=== PATIENT | male | born 1945 | race Caucasian/White ===

== ENCOUNTER → 2017-03-17 | Outpatient (CLI) | payer MEDICARE ==
--- NOTE | 2017-03-18 07:22 | US ---
EXAMINATION TYPE: US carotid duplex BILAT DATE OF EXAM: 03/17/2017 COMPARISON: NONE CLINICAL HISTORY: Stenosis I65.29. 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 EXAM MEASUREMENTS: RIGHT: Peak Systolic Velocity (PSV) cm/sec ----- Right CCA: 55.7 ----- Right ICA: 59.9 ----- Right ECA: 35.4 ICA/CCA ratio: 1.1 RIGHT: End Diastole cm/sec ----- Right CCA: 13.9 ----- Right ICA: 19.7 ----- Right ECA: 7.5 LEFT: Peak Systolic Velocity (PSV) cm/sec ----- Left CCA: 70.2 ----- Left ICA: 106.9 ----- Left ECA: 95.5 ICA/CCA ratio: 1.5 LEFT: End Diastole cm/sec ----- Left CCA: 17.2 ----- Left ICA: 28.5 ----- Left ECA: 10.9 VERTEBRALS (direction of flow): Right Vertebral: Antegrade Left Vertebral: Antegrade Rhythm: Normal Irregular wall plaque is noted at bilateral carotid bifurcation and PSV is wnl bilaterally. IMPRESSION: 1. No hemodynamically significant stenosis identified. Criteria for Assigning % of Stenosis / Diameter reduction (Estimation based on the indirect measurements of the internal carotid artery velocities (ICA PSV). 1. Normal (no stenosis)=ICA PSV < 125 cm/s: ratio < 2.0: ICA EDV<40 cm/s. 2. Less than 50% stenosis=ICA PSV < 125 cm/s: ratio < 2.0: ICA EDV<40 cm/s. 3. 50 to 69% stenosis=ICA PSV of 125 to 230 cm/s: ration 2.0 ? 4.0: ICA EDV 40-100 cm/s. 4. Greater than 70% stenosis to near occlusion= ICA PSV > 230 cm/s: ratio > 4.0: ICA EDV > 100 cm/s. 5. Near occlusion= ICA PSV velocities may be low or undetectable: variable ratio and ICA EDV. 6. Total occlusion=unable to detect flow.
== END | disposition home or self-care (01) ==
LOC: RADUSWWP 16:36
PROVIDERS: ATTEND Family Medicine
DX: I65.29 Occlusion and stenosis of unspecified carotid artery (principal)
CPT/HCPCS: 93880

== ENCOUNTER 2017-05-23 09:25 | Inpatient (IN) | payer MEDICARE ==
[2017-05-23 09:36] LABS: Glucose,Whole Blood 156 mg/dL (75-99)
[2017-05-23] MEDS ORDERED: SODIUM CHLORIDE 0.9% 1,000 ML IV STA ×3 (09:59→10:00)
[2017-05-23] MEDS ORDERED: ACETAMINOPHEN TAB 500 MG TAB PO STA (10:00)
[2017-05-23] MEDS ORDERED: IPRATROPIUM-ALBUTEROL 3 ML NEB INHALATION STA (10:03)
--- NOTE | 2017-05-23 10:03 | ED ---
General Adult HPI - General Chief complaint: Fever Stated complaint: Fever Time Seen by Provider: 05/23/17 09:51 Source: patient, RN notes reviewed Mode of arrival: wheelchair Limitations: no limitations - History of Present Illness Initial comments: Patient is a pleasant 72-year-old male presenting to the emergency department with fever. Onset of symptoms was several days ago. Patient complains of congestion, sore throat and ear fullness. Patient has had cough with green sputum. Patient may feel short of breath during coughing episodes. Patient does have a family member recently diagnosed with pneumonia. Patient has fatigue and myalgias. - Related Data Home Medications Medication Instructions Recorded Confirmed Atorvastatin Calcium [Lipitor] 10 mg PO HS 05/23/17 05/23/17 Hydrochlorothiazide [Hydrodiuril] 25 mg PO QAM 05/23/17 05/23/17 L.acidoph,Paracasei, B.lactis 1 cap PO QAM 05/23/17 05/23/17 [Probiotic] Losartan [Cozaar] 50 mg PO BID 05/23/17 05/23/17 Tamsulosin [Flomax] 0.4 mg PO HS 05/23/17 05/23/17 metFORMIN HCL [Glucophage Xr] 1,000 mg PO HS 05/23/17 05/23/17 metFORMIN HCL [Glucophage Xr] 500 mg PO QAM 05/23/17 05/23/17 Allergies Allergy/AdvReac Type Severity Reaction Status Date / Time levofloxacin [From Levaquin] Allergy Rash/Hives Verified 05/23/17 09:39 ketamine AdvReac Confusion Verified 05/23/17 09:39 Review of Systems ROS Statement: Those systems with pertinent positive or pertinent negative responses have been documented in the HPI. ROS Other: All systems not noted in ROS Statement are negative. Constitutional: Reports: fever, chills Eyes: Denies: eye pain ENT: Reports: congestion Respiratory: Reports: cough Cardiovascular: Denies: palpitations Endocrine: Reports: fatigue Gastrointestinal: Denies: abdominal pain Genitourinary: Denies: dysuria Musculoskeletal: Denies: back pain Skin: Denies: rash Neurological: Denies: weakness Past Medical History Past Medical History: CVA/TIA, Diabetes Mellitus, Hyperlipidemia, Hypertension History of Any Multi-Drug Resistant Organisms: None Reported Past Surgical History: Back Surgery, Cholecystectomy, Joint Replacement Additional Past Surgical History / Comment(s): bilateral hip Past Psychological History: No Psychological Hx Reported Smoking Status: Never smoker Past Alcohol Use History: None Reported Past Drug Use History: None Reported General Exam Limitations: no limitations General appearance: alert, in no apparent distress Head exam: Present: atraumatic Eye exam: Present: normal appearance, PERRL ENT exam: Present: normal oropharynx, TM's normal bilaterally, other (Mild tenderness over the maxillary sinuses) Neck exam: Present: normal inspection. Absent: tenderness, meningismus Respiratory exam: Present: wheezes (Mild wheeze), rhonchi Cardiovascular Exam: Present: regular rate, normal rhythm GI/Abdominal exam: Present: soft. Absent: tenderness Extremities exam: Present: normal inspection Neurological exam: Present: alert Psychiatric exam: Present: normal affect, normal mood Skin exam: Present: normal color Course Vital Signs 05/23/17 05/23/17 05/23/17 09:34 09:53 10:08 Temperature 100.9 F H Pulse Rate 110 H Pulse Rate [ 96 92 Right] Respiratory 18 20 20 Rate Blood Pressure 82/51 Blood Pressure 109/56 115/56 [Right Arm] O2 Sat by Pulse 98 95 94 L Oximetry 05/23/17 05/23/17 05/23/17 10:15 10:30 10:45 Temperature Pulse Rate Pulse Rate [ 89 90 82 Right] Respiratory 18 16 16 Rate Blood Pressure Blood Pressure 135/61 134/60 119/58 [Right Arm] O2 Sat by Pulse 96 93 L 96 Oximetry 05/23/17 05/23/17 05/23/17 10:50 11:00 11:55 Temperature 100.2 F H 99.4 F Pulse Rate 86 88 86 Pulse Rate [ 90 Right] Respiratory 16 16 Rate Blood Pressure 125/58 Blood Pressure 118/60 [Right Arm] O2 Sat by Pulse 95 97 Oximetry - Reevaluation(s) Reevaluation #1: 05/23/17 13:13 Patient meet sepsis criteria at 1313. Blood culture and lactic acid have been ordered. Fluids were provided. Antibiotics will be ordered. Patient will be admitted secondary to hypotension and influenza with pneumonia. Case was discussed in detail with Dr. Candelaria, covering for Dr. maloney, who admits for Dr. Oakley. Medical Decision Making - Lab Data Result diagrams: 05/23/17 09:49 02/23/18 09:49 Lab Results 05/23/17 05/23/17 05/23/17 Range/Units 09:33 09:49 09:49 WBC 6.3 (3.8-10.6) k/uL RBC 4.72 (4.30-5.90) m/uL Hgb 14.1 (13.0-17.5) gm/dL Hct 39.9 (39.0-53.0) % MCV 84.6 (80.0-100.0) fL MCH 29.9 (25.0-35.0) pg MCHC 35.3 (31.0-37.0) g/dL RDW 14.2 (11.5-15.5) % Plt Count 165 (150-450) k/uL Neutrophils % 82 % Lymphocytes % 10 % Monocytes % 6 % Eosinophils % 1 % Basophils % 0 % Neutrophils # 5.1 (1.3-7.7) k/uL Lymphocytes # 0.6 L (1.0-4.8) k/uL Monocytes # 0.4 (0-1.0) k/uL Eosinophils # 0.0 (0-0.7) k/uL Basophils # 0.0 (0-0.2) k/uL Hyperchromasia Slight PT (9.0-12.0) sec INR (<1.2) APTT (22.0-30.0) sec Sodium 130 L (137-145) mmol/L Potassium 4.2 (3.5-5.1) mmol/L Chloride 94 L (98-107) mmol/L Carbon Dioxide 25 (22-30) mmol/L Anion Gap 11 mmol/L BUN 24 H (9-20) mg/dL Creatinine 1.10 (0.66-1.25) mg/dL Est GFR (MDRD) Af Amer >60 (>60 ml/min/1.73 sqM) Est GFR (MDRD) Non-Af >60 (>60 ml/min/1.73 sqM) Glucose 135 H (74-99) mg/dL POC Glucose (mg/dL) 156 H (75-99) mg/dL POC Glu Advertising Columnist ID Esteban, Kaitlyn Plasma Lactic Acid Diony (0.7-2.0) mmol/L Calcium 8.7 (8.4-10.2) mg/dL Total Bilirubin 2.2 H (0.2-1.3) mg/dL AST 43 (17-59) U/L ALT 62 (21-72) U/L Alkaline Phosphatase 76 (38-126) U/L Total Protein 6.8 (6.3-8.2) g/dL Albumin 3.8 (3.5-5.0) g/dL Influenza Type A RNA (Not Detectd) Influenza Type B (PCR) (Not Detectd) Group A Strep Rapid (Negative) 05/23/17 05/23/17 05/23/17 Range/Units 09:49 09:49 10:01 WBC (3.8-10.6) k/uL RBC (4.30-5.90) m/uL Hgb (13.0-17.5) gm/dL Hct (39.0-53.0) % MCV (80.0-100.0) fL MCH (25.0-35.0) pg MCHC (31.0-37.0) g/dL RDW (11.5-15.5) % Plt Count (150-450) k/uL Neutrophils % % Lymphocytes % % Monocytes % % Eosinophils % % Basophils % % Neutrophils # (1.3-7.7) k/uL Lymphocytes # (1.0-4.8) k/uL Monocytes # (0-1.0) k/uL Eosinophils # (0-0.7) k/uL Basophils # (0-0.2) k/uL Hyperchromasia PT 11.1 (9.0-12.0) sec INR 1.2 H (<1.2) APTT 25.0 (22.0-30.0) sec Sodium (137-145) mmol/L Potassium (3.5-5.1) mmol/L Chloride (98-107) mmol/L Carbon Dioxide (22-30) mmol/L Anion Gap mmol/L BUN (9-20) mg/dL Creatinine (0.66-1.25) mg/dL Est GFR (MDRD) Af Amer (>60 ml/min/1.73 sqM) Est GFR (MDRD) Non-Af (>60 ml/min/1.73 sqM) Glucose (74-99) mg/dL POC Glucose (mg/dL) (75-99) mg/dL POC Glu Advertising Columnist ID Plasma Lactic Acid Diony 1.0 (0.7-2.0) mmol/L Calcium (8.4-10.2) mg/dL Total Bilirubin (0.2-1.3) mg/dL AST (17-59) U/L ALT (21-72) U/L Alkaline Phosphatase (38-126) U/L Total Protein (6.3-8.2) g/dL Albumin (3.5-5.0) g/dL Influenza Type A RNA Detected H (Not Detectd) Influenza Type B (PCR) Not Detected (Not Detectd) Group A Strep Rapid (Negative) 05/23/17 Range/Units 10:01 WBC (3.8-10.6) k/uL RBC (4.30-5.90) m/uL Hgb (13.0-17.5) gm/dL Hct (39.0-53.0) % MCV (80.0-100.0) fL MCH (25.0-35.0) pg MCHC (31.0-37.0) g/dL RDW (11.5-15.5) % Plt Count (150-450) k/uL Neutrophils % % Lymphocytes % % Monocytes % % Eosinophils % % Basophils % % Neutrophils # (1.3-7.7) k/uL Lymphocytes # (1.0-4.8) k/uL Monocytes # (0-1.0) k/uL Eosinophils # (0-0.7) k/uL Basophils # (0-0.2) k/uL Hyperchromasia PT (9.0-12.0) sec INR (<1.2) APTT (22.0-30.0) sec Sodium (137-145) mmol/L Potassium (3.5-5.1) mmol/L Chloride (98-107) mmol/L Carbon Dioxide (22-30) mmol/L Anion Gap mmol/L BUN (9-20) mg/dL Creatinine (0.66-1.25) mg/dL Est GFR (MDRD) Af Amer (>60 ml/min/1.73 sqM) Est GFR (MDRD) Non-Af (>60 ml/min/1.73 sqM) Glucose (74-99) mg/dL POC Glucose (mg/dL) (75-99) mg/dL POC Glu Advertising Columnist ID Plasma Lactic Acid Diony (0.7-2.0) mmol/L Calcium (8.4-10.2) mg/dL Total Bilirubin (0.2-1.3) mg/dL AST (17-59) U/L ALT (21-72) U/L Alkaline Phosphatase (38-126) U/L Total Protein (6.3-8.2) g/dL Albumin (3.5-5.0) g/dL Influenza Type A RNA (Not Detectd) Influenza Type B (PCR) (Not Detectd) Group A Strep Rapid Negative (Negative) - Radiology Data Radiology results: image reviewed (Chest x-ray has concern for left lower lobe infiltrate.) Critical Care Time Critical Care Time: Yes Total Critical Care Time: 32 Disposition Clinical Impression: Severe sepsis, Influenza, Pneumonia Disposition: ADMITTED IP TO THIS HOSP Referrals: Eddie Oakley DO [Primary Care Provider] - 1-2 days Decision Time: 13:14
[2017-05-23 10:18] LABS: HCT 39.9 % (39.0-53.0); HGB 14.1 gm/dL (13.0-17.5); Hyperchromasia Slight; MCH 29.9 pg (25.0-35.0); MCHC 35.3 g/dL (31.0-37.0); MCV 84.6 fL (80.0-100.0); Platelet Count 165 k/uL (150-450); RBC 4.72 m/uL (4.30-5.90); RDW 14.2 % (11.5-15.5); WBC 6.3 k/uL (3.8-10.6)
[2017-05-23 10:19] LABS: Basophils % (A) 0 %; Eosinophils % (A) 1 %; Lymphocytes # (A) 0.6 k/uL (1.0-4.8); Lymphocytes % (A) 10 %; Monocytes # (A) 0.4 k/uL (0-1.0); Monocytes % (A) 6 %; Neutrophils # (A) 5.1 k/uL (1.3-7.7); Neutrophils % (A) 82 %
[2017-05-23 10:33] LABS: ALT 62 U/L (21-72); AST 43 U/L (17-59); Albumin 3.8 g/dL (3.5-5.0); Alkaline Phosphatase 76 U/L (38-126); Anion Gap 11 mmol/L; Blood Urea Nitrogen 24 mg/dL (9-20); Calcium 8.7 mg/dL (8.4-10.2); Carbon Dioxide 25 mmol/L (22-30); Chloride 94 mmol/L (98-107); Glucose 135 mg/dL (74-99); Potassium 4.2 mmol/L (3.5-5.1); Sodium 130 mmol/L (137-145); Total Bilirubin 2.2 mg/dL (0.2-1.3); Total Protein 6.8 g/dL (6.3-8.2)
[2017-05-23 10:38] LABS: INR 1.2 (<1.2); Prothrombin Time 11.1 sec (9.0-12.0)
--- NOTE | 2017-05-23 11:40 | XR ---
EXAMINATION TYPE: XR chest 2V DATE OF EXAM: 05/23/2017 COMPARISON: NONE HISTORY: Fever, cough and congestion TECHNIQUE: Frontal and lateral views of the chest are obtained. FINDINGS: Patient is rotated and the exam is expiratory, there are overlying cardiac leads. No evide nt pneumothorax or pleural effusion. Cardiac mediastinal silhouette, pulmonary vascularity and mag w ithin normal limits accounting for technique. Question some patchy retrocardiac density. IMPRESSION: Difficult to exclude left lower lobe pneumonia, correlate, follow-up suggested.
[2017-05-23] MEDS ORDERED: PNEUMONIA PROTOCOL UTILIZED 1 EACH MISC PO PRN (13:15)
[2017-05-23] MEDS ORDERED: AZITHROMYCIN 500 MG in SODIUM CHLORIDE 0.9% 250 ML IVPB STA (13:15)
[2017-05-23] MEDS ORDERED: IPRATROPIUM-ALBUTEROL 3 ML NEB INHALATION PRN (13:15)
[2017-05-23] MEDS ORDERED: cefTRIAXone IN SWFI 1,000 MG/10 ML SYRINGE IVP STA (13:15)
[2017-05-23 13:40] LABS: Appearance,Urine Clear (Clear); Bilirubin,Urine Negative (Negative); Blood,Urine Negative (Negative); Color,Urine Yellow; Glucose,Urine (UA) Negative (Negative); Ketones,Urine 1+ (Negative); Leukocyte Esterase,Urine Negative (Negative); Nitrite,Urine Negative (Negative); Protein,Urine Trace (Negative); Specific Gravity,Urine 1.014 (1.001-1.035)
[2017-05-23] MEDS: SODIUM CHLORIDE 0.9% 1,000 ML IV SCH (13:41)
[2017-05-23] MEDS: OSELTAMIVIR 75 MG CAP PO SCH ×2 (13:41→23:49)
[2017-05-23] MEDS: HYDROCHLOROTHIAZIDE 25 MG TAB PO SCH (17:39)
[2017-05-23] MEDS: LACTOBACILLUS ACIDOPH & BULGAR 1 EACH PACKET PO SCH (17:39)
[2017-05-23] MEDS: metFORMIN 500 MG TAB PO SCH (17:39)
[2017-05-23] MEDS: ACETAMINOPHEN TAB 325 MG TAB PO PRN (19:58)
[2017-05-23] MEDS: GABAPENTIN 300 MG CAP PO SCH (19:58)
--- NOTE | 2017-05-23 20:09 | HP ---
HISTORY AND PHYSICAL DATE OF ADMISSION: 05/23/2017. Chief complaint was fever. BRIEF HISTORY: Patient is 72-year-old male patient with a past medical history of hypertension, hyperlipidemia and diabetes, who presents to the ER with a complaint of fever which started several days ago. The patient claims that he has some marked chest congestion with sore throat and ear fullness. On day of admission, started coughing up yellowish- green sputum. He was very short of breath and diaphoretic and getting weaker, so decided to come to ED. He has a past medical history significant for: 1. History of CVA/TIA. 2. Diabetes mellitus. 3. Hyperlipidemia. 4. Hypertension. 5. PAST SURGICAL HISTORY: Significant for: 1. Back surgery. 2. Cholecystectomy. 3. Bilateral hip replacement surgery. SOCIAL HISTORY: Patient has no history of smoking or alcohol abuse. Lives at home with . FAMILY HISTORY: Negative for coronary artery disease or CHF or any history of cancer in the family. He is allergic to LEVAQUIN and KETAMINE. MEDICATIONS: Patient is on: 1. Lipitor 10 mg p.o. q.h.s. 2. HydroDIURIL 25 mg p.o. q.a.m. 3. Cozaar 50 mg p.o. b.i.d. 4. Flomax 0.4 mg p.o. q.h.s. 5. Glucophage 1000 mg p.o. q.h.s. and. 6. Metformin 500 mg p.o. q.a.m. REVIEW OF SYSTEM: CONSTITUTIONAL: Fever and chills. HEENT: No vision or hearing loss. RESPIRATORY: Cough and chest congestion. CARDIOVASCULAR: Palpitations. ENDOCRINE: No polyuria, polydipsia. GI: Abdominal pain. No nausea, vomiting. GENITOURINARY: No dysuria. No hematuria. MUSCULOSKELETAL: Muscle aches and pains. SKIN: No rashes. NEUROLOGIC: No dizziness, lightheadedness. No headaches. PHYSICAL EXAMINATION: Patient is awake and alert, in mild distress. VITAL SIGNS: Temperature of 100.9, pulse 110, respirations 18, blood pressure 82/51, O2 saturation 98%. HEENT: Atraumatic, normocephalic. Pupils equal and reactive to light. Extraocular movements intact. Buccal mucosa is fair to dry. NECK: Supple. No goiter or lymphadenopathy. JVD is negative. No carotid bruit heard. LUNGS: Positive congestion, diffuse wheezing and rhonchi. Heart is tachycardic regular rhythm. ABDOMEN: Soft and nontender, nondistended. Bowel sounds positive. EXTREMITIES: No edema, clubbing, cyanosis. NEUROLOGICAL: Patient is awake, alert, oriented x3. No gross motor or sensory deficit. PSYCHIATRIC: Patient has normal mood and affect. Skin is normal in color. LABS: CBC: White blood count of 6.3, hemoglobin 14.1, hematocrit 39.9 and platelet count 165. Chemical profile: Sodium 130, potassium , chloride 94, bicarb 25, BUN 24, creatinine 1.1, glucose 135. Influenza A is positive. Chest x-ray: Possible left lower lobe pneumonia. ASSESSMENT: 1. Influenza A. 2. Community-acquired pneumonia, left lower lobe. 3. Acute renal injury and dehydration. 4. Hyponatremia. 5. Hypotension secondary to dehydration. Plan is to admit the patient to telemetry, monitor his electrolytes, CBC. Start patient on IV Rocephin and Zithromax, nebulizer treatments and start patient on O2 per nasal cannula. Tamiflu was started in ED. Will resume home medications and follow the patient clinically. MMODL / IJN: [id number] /
[2017-05-23 20:50] LABS: Glucose,Whole Blood 155 mg/dL (75-99)
[2017-05-23] MEDS: TAMSULOSIN 0.4 MG CAP.ER.24H PO SCH (22:11)
[2017-05-23] MEDS: LOSARTAN 50 MG TAB PO SCH (22:11)
[2017-05-23] MEDS: ATORVASTATIN 10 MG TAB PO SCH (22:12)
[2017-05-24] MEDS: SODIUM CHLORIDE 0.9% 1,000 ML IV SCH ×3 (05:09→17:52)
--- NOTE | 2017-05-24 07:12 | XR ---
EXAMINATION TYPE: XR chest 2V DATE OF EXAM: 05/24/2017 HISTORY: pneumonia. REFERENCE: Previous study dated 05/23/2017. FINDINGS: The lungs are clear. The heart is not enlarged. Pleural spaces are clear. IMPRESSION: NO ACUTE INTRATHORACIC ABNORMALITY.
[2017-05-24] MEDS: metFORMIN 500 MG TAB PO SCH ×2 (07:29→17:52)
[2017-05-24] MEDS: LACTOBACILLUS ACIDOPH & BULGAR 1 EACH PACKET PO SCH (07:31)
[2017-05-24] MEDS: GABAPENTIN 300 MG CAP PO SCH (07:31)
[2017-05-24] MEDS: HYDROCHLOROTHIAZIDE 25 MG TAB PO SCH (07:31)
[2017-05-24] MEDS: LOSARTAN 50 MG TAB PO SCH ×2 (07:32→21:05)
[2017-05-24 07:42] LABS: Glucose,Whole Blood 147 mg/dL (75-99)
[2017-05-24] MEDS ORDERED: LORATADINE 10 MG TAB PO SCH (09:00)
[2017-05-24] MEDS: ACETAMINOPHEN TAB 325 MG TAB PO PRN (09:57)
[2017-05-24 11:21] LABS: Glucose,Whole Blood 144 mg/dL (75-99)
[2017-05-24] MEDS: AZITHROMYCIN 500 MG TAB PO SCH (12:08)
[2017-05-24] MEDS: OSELTAMIVIR 75 MG CAP PO SCH ×2 (12:08→23:37)
[2017-05-24 12:25] VITALS: BMI 32.3
[2017-05-24] MEDS ORDERED: cefTRIAXone IN SWFI 1,000 MG/10 ML SYRINGE IVP SCH (13:00)
[2017-05-24] MEDS ORDERED: GABAPENTIN 300 MG CAP PO SCH (17:00)
[2017-05-24 17:51] LABS: Glucose,Whole Blood 127 mg/dL (75-99)
[2017-05-24 21:03] LABS: Glucose,Whole Blood 138 mg/dL (75-99)
[2017-05-24] MEDS: TAMSULOSIN 0.4 MG CAP.ER.24H PO SCH (21:05)
[2017-05-24] MEDS: ATORVASTATIN 10 MG TAB PO SCH (21:05)
[2017-05-24] MEDS: LORATADINE-PSEUDOEPH 5-120 MG 1 EACH TAB.ER.12H PO SCH (21:18)
[2017-05-25 07:13] LABS: Glucose,Whole Blood 133 mg/dL (75-99)
[2017-05-25] MEDS: LACTOBACILLUS ACIDOPH & BULGAR 1 EACH PACKET PO SCH (07:19)
[2017-05-25] MEDS: metFORMIN 500 MG TAB PO SCH (07:19)
[2017-05-25] MEDS: LORATADINE-PSEUDOEPH 5-120 MG 1 EACH TAB.ER.12H PO SCH (07:20)
[2017-05-25] MEDS: LOSARTAN 50 MG TAB PO SCH (07:20)
[2017-05-25 08:00] VITALS: BP 127/70; PULSE 69; RESP 20; TEMP 97.7
[2017-05-25] MEDS ORDERED: CEFUROXIME 250 MG TAB PO SCH (08:00)
--- NOTE | 2017-05-25 11:00 | PN ---
PROGRESS NOTE DATE OF SERVICE: May 24, 2017. PRESENTING COMPLAINT: Fever, cough. INTERVAL HISTORY: This patient was seen by me yesterday on May 24, 2017. Patient admitted with what is felt to be pneumonia and influenza A by my colleague. The patient's cough and sputum production is getting better. Appetite is getting better. Patient has been up to the bathroom. REVIEW OF SYSTEMS: Done for constitutional, cardiovascular, GI, pulmonary and relevant findings as above. CURRENT MEDICATIONS: Reviewed that include: Azithromycin, ceftriaxone and Tamiflu. PHYSICAL EXAMINATION: Temperature 97.9, pulse 81, respiratory 18, blood pressure 135/79, pulse ox 95% on room air. GENERAL APPEARANCE: Sitting up, edged of the bed, awake. EYES: Pupils equal. Conjunctivae normal. HEENT external appearance of nose and ears normal. Oral cavity normal. Neck JVD not raised. Mass not palpable. Respiratory effort normal. Lungs slightly decreased breath sounds. Some right-sided wheezing. Cardiovascular 1st and 2nd sounds normal. No edema. ABDOMEN: Soft, nontender. Liver and spleen not palpable. No mass palpable. Psychiatry: Alert and oriented times three. Mood and affect is normal. INVESTIGATIONS: Investigations: Sodium 130, BUN 24, creatinine 1.10. The labs are from yesterday. ASSESSMENT: 1. Acute influenza A pneumonitis. 2. Possible left lower lobe community-acquired pneumonia. Consider gram-negative organism for which patient is on IV ceftriaxone. 3. Hyponatremia, suspect hypoosmolar from decreased salt intake. 4. Dehydration. 5. Obesity; BMI 32.2. 6. Essential hypertension. 7. Diabetes mellitus type 2 on oral hypoglycemic. 8. Hyperlipidemia. 9. Benign prostatic hypertrophy. PLAN: Care was discussed with the patient at length. We will switch over to oral antibiotics in the morning. Continue with Tamiflu. Recheck sodium tomorrow morning. If the patient continues to do well, hoping can be discharged tomorrow. MMODL / IJN: [id number] /
[2017-05-25 11:09] LABS: Anion Gap 8 mmol/L; Blood Urea Nitrogen 12 mg/dL (9-20); Calcium 8.6 mg/dL (8.4-10.2); Carbon Dioxide 30 mmol/L (22-30); Chloride 92 mmol/L (98-107); Glucose 171 mg/dL (74-99); Potassium 4.1 mmol/L (3.5-5.1); Sodium 130 mmol/L (137-145)
[2017-05-25] MEDS: OSELTAMIVIR 75 MG CAP PO SCH (12:20)
[2017-05-25] MEDS: AZITHROMYCIN 500 MG TAB PO SCH (12:20)
--- NOTE | 2017-05-25 22:42 | DS ---
DISCHARGE SUMMARY DATE OF ADMISSION: 05/23/2017. DATE OF DISCHARGE: 05/25/2017. FINAL DIAGNOSES: 1. Possible left lower lobe pneumonia, community-acquired pneumonia, suspect gram- negative organism, present on admission. 2. Acute influenza A with pneumonitis, present on admission. 3. Hyponatremia, suspect hypoosmolar from increased fluid intake. 4. Dehydration. 5. Obesity; BMI 32.2. 6. Essential hypertension. 7. Diabetes mellitus type 2, on oral hypoglycemic. 8. Hyperlipidemia. 9. Benign prostatic hypertrophy. HOSPITAL COURSE: This patient presented to the hospital with cough, shortness of breath, some fever. Found to have pneumonia, was put on IV ceftriaxone and Tamiflu. Doing much better by the time of discharge. Tolerating a diet. The patient's sodium does run low. Patient does drink an excessive amount of fluids, was told to cut back on the same. Doing much better at time of discharge. On examination, very few rigors or crackles. Otherwise up and about, doing well. Care was discussed in detail with the patient. DISCHARGE MEDICATIONS: 1. Lipitor 10 mg at bedtime. 2. Hydrochlorothiazide 25 mg p.o. daily. 3. Probiotic 1 capsule p.o. daily. 4. Cozaar 50 mg p.o. b.i.d. 5. Flomax 0.4 mg at bedtime. 6. Glucophage XR 1000 mg at bedtime and 5 mg in the morning. 7. Ceftin 500 mg p.o. b.i.d. 6 tablets. 8. Claritin-D every 12, 6 tablets. 9. Tamiflu 75 mg b.i.d., 10 capsules. ADDITIONAL INSTRUCTIONS: 1. Patient discussed in detail to cut back on fluids. 2. Labs, BMP in 1 week. 3[address] Followup with [address] Oakley. Discussion and discharge planning more than 35 minutes. MMODL / IJN: [id number] /
== END 2017-05-25 14:11 | disposition home or self-care (01) | DRG 178 ==
LOC: EC 09:25 → 5MS5E 13:15
PROVIDERS: ADMIT Hospitalist; ATTEND Hospitalist
DX: J15.6 Pneumonia due to other Gram-negative bacteria (principal); E87.1 Hypo-osmolality and hyponatremia; N17.9 Acute kidney failure, unspecified; E86.0 Dehydration; E11.9 Type 2 diabetes mellitus without complications; E66.9 Obesity, unspecified; E78.5 Hyperlipidemia, unspecified; I10 Essential (primary) hypertension; J10.08 Influenza due to other identified influenza virus with other specified pneumonia; J12.89 Other viral pneumonia; N40.0 Benign prostatic hyperplasia without lower urinary tract symptoms; Z86.73 Personal history of transient ischemic attack (TIA), and cerebral infarction without residual deficits; Z96.643 Presence of artificial hip joint, bilateral; Z88.1 Allergy status to other antibiotic agents; Z88.8 Allergy status to other drugs, medicaments and biological substances; Z79.899 Other long term (current) drug therapy
CPT/HCPCS: 36415; 71046; 80048; 80053; 81003; 83605; 85025; 85610; 85730; 87040; 87070; 87077; 87081; 87086; 87186; 87205; 87430; 87502; 94640; 96361; 96365; 96375; 99285

== ENCOUNTER 2017-07-06 19:13 | Emergency (ER) | payer MEDICARE ==
--- NOTE | 2017-07-06 19:51 | ED ---
General Adult HPI - General Chief complaint: Chest Pain Stated complaint: hypertension Time Seen by Provider: 07/06/17 19:42 Source: patient, RN notes reviewed, old records reviewed Mode of arrival: wheelchair Limitations: no limitations - History of Present Illness Initial comments: 72-year-old male presenting for evaluation of elevated blood pressure. Patient states he has been monitoring his blood pressure because several weeks ago when he had the flu and pneumonia his blood pressure had been running low. Throughout the day today he has noticed significantly elevated blood pressures between 180 systolic and 210 systolic. He denies missing any doses of his antihypertensive medications. States that he takes losartan 50 mg twice daily as well as had clear thiazide in the morning. Denies any chest pain. States he has some mild chest heaviness, no difficulty breathing. No abdominal pain. 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 No new focal weakness or numbness. No headache. No cough, no fever or chills. - Related Data Home Medications Medication Instructions Recorded Confirmed Atorvastatin Calcium [Lipitor] 10 mg PO HS 05/23/17 05/23/17 Hydrochlorothiazide [Hydrodiuril] 25 mg PO QAM 05/23/17 05/23/17 L.acidoph,Paracasei, B.lactis 1 cap PO QAM 05/23/17 05/23/17 [Probiotic] Losartan [Cozaar] 50 mg PO BID 05/23/17 05/23/17 Tamsulosin [Flomax] 0.4 mg PO HS 05/23/17 05/23/17 metFORMIN HCL [Glucophage Xr] 1,000 mg PO HS 05/23/17 05/23/17 metFORMIN HCL [Glucophage Xr] 500 mg PO QAM 05/23/17 05/23/17 Previous Rx's Medication Instructions Recorded Cefuroxime [Ceftin] 500 mg PO BID@0800,2000 #6 tab 05/25/17 Loratadine-Pseudoeph 5-120 mg 1 each PO Q12HR #6 tab.er.12h 05/25/17 [Claritin-D 12 Hour] Oseltamivir [Tamiflu] 75 mg PO BID@0000,1200 #10 cap 05/25/17 Allergies Allergy/AdvReac Type Severity Reaction Status Date / Time levofloxacin [From Levaquin] Allergy Rash/Hives Verified 07/06/17 19:26 ketamine AdvReac Confusion Verified 07/06/17 19:26 Review of Systems ROS Statement: Those systems with pertinent positive or pertinent negative responses have been documented in the HPI. ROS Other: All systems not noted in ROS Statement are negative. 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 History of Any Multi-Drug Resistant Organisms: None Reported Past Surgical History: Back Surgery, Cholecystectomy, Joint Replacement Additional Past Surgical History / Comment(s): bilateral total hip arthroplasties, low back surgery-has titanium cage, bilateral cataract removals with lens implants, colonoscopies with benign polypectomy. Past Anesthesia/Blood Transfusion Reactions: No Reported Reaction Past Psychological History: No Psychological Hx Reported Smoking Status: Never smoker Past Alcohol Use History: None Reported Past Drug Use History: None Reported - Past Family History Father Family Medical History: CVA/TIA Additional Family Medical History / Comment(s): Father from a CVA at the age of 60 yrs. Mother Additional Family Medical History / Comment(s): Mother at the age of 45yrs thought to be d/t cerebral hemorrhage. General Exam Limitations: no limitations General appearance: alert, in no apparent distress Head exam: Present: atraumatic, normocephalic Eye exam: Present: normal appearance, PERRL, EOMI ENT exam: Present: normal exam Neck exam: Present: normal inspection. Absent: tenderness, meningismus Respiratory exam: Present: normal lung sounds bilaterally. Absent: respiratory distress, wheezes Cardiovascular Exam: Present: regular rate, normal rhythm GI/Abdominal exam: Present: soft. Absent: distended, tenderness, guarding, rebound Extremities exam: Present: normal inspection, normal capillary refill. Absent: pedal edema Neurological exam: Present: alert, oriented X3, CN II-XII intact. Absent: motor sensory deficit Psychiatric exam: Present: normal affect, normal mood Skin exam: Present: warm, dry, intact. Absent: cyanosis, diaphoretic Course Vital Signs 07/06/17 07/06/17 07/06/17 19:23 20:14 20:39 Temperature 97.3 F L Pulse Rate 73 70 75 Respiratory 18 16 16 Rate Blood Pressure 219/93 206/91 187/85 O2 Sat by Pulse 99 98 98 Oximetry 07/06/17 07/06/17 07/07/17 21:48 23:36 00:13 Temperature 98.7 F Pulse Rate 79 83 91 Respiratory 16 18 16 Rate Blood Pressure 177/77 188/86 160/79 O2 Sat by Pulse 96 97 98 Oximetry - Reevaluation(s) Reevaluation #1: 07/06/17 21:04 Patient's care is signed out to Dr. Regan shift change awaiting down trending blood pressure. Medical Decision Making - Medical Decision Making Initial blood pressure is elevated, 210/100, this is symmetric in both upper extremities. Normal pulse exam. - Lab Data Result diagrams: 07/06/17 19:54 07/06/17 19:54 Lab Results 07/06/17 07/06/17 07/06/17 Range/Units 19:54 19:54 19:54 WBC 4.5 (3.8-10.6) k/uL RBC 4.72 (4.30-5.90) m/uL Hgb 13.9 (13.0-17.5) gm/dL Hct 39.1 (39.0-53.0) % MCV 82.8 (80.0-100.0) fL MCH 29.4 (25.0-35.0) pg MCHC 35.5 (31.0-37.0) g/dL RDW 13.7 (11.5-15.5) % Plt Count 173 (150-450) k/uL Neutrophils % 61 % Lymphocytes % 27 % Monocytes % 7 % Eosinophils % 4 % Basophils % 1 % Neutrophils # 2.7 (1.3-7.7) k/uL Lymphocytes # 1.2 (1.0-4.8) k/uL Monocytes # 0.3 (0-1.0) k/uL Eosinophils # 0.2 (0-0.7) k/uL Basophils # 0.0 (0-0.2) k/uL PT (9.0-12.0) sec INR (<1.2) APTT (22.0-30.0) sec Sodium 134 L (137-145) mmol/L Potassium 4.2 (3.5-5.1) mmol/L Chloride 99 (98-107) mmol/L Carbon Dioxide 25 (22-30) mmol/L Anion Gap 10 mmol/L BUN 22 H (9-20) mg/dL Creatinine 0.80 (0.66-1.25) mg/dL Est GFR (CKD-EPI)AfAm >90 (>60 ml/min/1.73 sqM) Est GFR (CKD-EPI)NonAf >90 (>60 ml/min/1.73 sqM) Glucose 186 H (74-99) mg/dL Calcium 9.4 (8.4-10.2) mg/dL Magnesium 1.9 (1.6-2.3) mg/dL Total Bilirubin 1.0 (0.2-1.3) mg/dL AST 25 (17-59) U/L ALT 36 (21-72) U/L Alkaline Phosphatase 71 (38-126) U/L Total Creatine Kinase 172 H (55-170) U/L CK-MB (CK-2) 4.1 H* (0.0-2.4) ng/mL CK-MB (CK-2) Rel Index 2.4 Troponin I <0.012 (0.000-0.034) ng/mL NT-Pro-B Natriuret Pep pg/mL Total Protein 7.0 (6.3-8.2) g/dL Albumin 4.0 (3.5-5.0) g/dL 07/06/17 07/06/17 Range/Units 19:54 19:54 WBC (3.8-10.6) k/uL RBC (4.30-5.90) m/uL Hgb (13.0-17.5) gm/dL Hct (39.0-53.0) % MCV (80.0-100.0) fL MCH (25.0-35.0) pg MCHC (31.0-37.0) g/dL RDW (11.5-15.5) % Plt Count (150-450) k/uL Neutrophils % % Lymphocytes % % Monocytes % % Eosinophils % % Basophils % % Neutrophils # (1.3-7.7) k/uL Lymphocytes # (1.0-4.8) k/uL Monocytes # (0-1.0) k/uL Eosinophils # (0-0.7) k/uL Basophils # (0-0.2) k/uL PT 10.3 (9.0-12.0) sec INR 1.1 (<1.2) APTT 22.6 (22.0-30.0) sec Sodium (137-145) mmol/L Potassium (3.5-5.1) mmol/L Chloride (98-107) mmol/L Carbon Dioxide (22-30) mmol/L Anion Gap mmol/L BUN (9-20) mg/dL Creatinine (0.66-1.25) mg/dL Est GFR (CKD-EPI)AfAm (>60 ml/min/1.73 sqM) Est GFR (CKD-EPI)NonAf (>60 ml/min/1.73 sqM) Glucose (74-99) mg/dL Calcium (8.4-10.2) mg/dL Magnesium (1.6-2.3) mg/dL Total Bilirubin (0.2-1.3) mg/dL AST (17-59) U/L ALT (21-72) U/L Alkaline Phosphatase (38-126) U/L Total Creatine Kinase (55-170) U/L CK-MB (CK-2) (0.0-2.4) ng/mL CK-MB (CK-2) Rel Index Troponin I (0.000-0.034) ng/mL NT-Pro-B Natriuret Pep 174 pg/mL Total Protein (6.3-8.2) g/dL Albumin (3.5-5.0) g/dL Disposition Clinical Impression: Hypertension Disposition: HOME SELF-CARE Condition: Fair Instructions: Hypertension (ED) Referrals: Eddie Oakley DO [Primary Care Provider] - 1-2 days
[2017-07-06] MEDS ORDERED: LOSARTAN-HCTZ 50-12.5 MG 1 EACH TAB PO ONE (20:00)
[2017-07-06 20:05] LABS: Basophils % (A) 1 %; Eosinophils # (A) 0.2 k/uL (0-0.7); Eosinophils % (A) 4 %; HCT 39.1 % (39.0-53.0); HGB 13.9 gm/dL (13.0-17.5); Lymphocytes # (A) 1.2 k/uL (1.0-4.8); Lymphocytes % (A) 27 %; MCH 29.4 pg (25.0-35.0); MCHC 35.5 g/dL (31.0-37.0); MCV 82.8 fL (80.0-100.0); Mean Platelet Volume 7.3; Monocytes # (A) 0.3 k/uL (0-1.0); Monocytes % (A) 7 %; Neutrophils # (A) 2.7 k/uL (1.3-7.7); Neutrophils % (A) 61 %; Platelet Count 173 k/uL (150-450); RBC 4.72 m/uL (4.30-5.90); RDW 13.7 % (11.5-15.5); WBC 4.5 k/uL (3.8-10.6)
[2017-07-06 20:21] LABS: ALT 36 U/L (21-72); AST 25 U/L (17-59); Alkaline Phosphatase 71 U/L (38-126); Anion Gap 10 mmol/L; Blood Urea Nitrogen 22 mg/dL (9-20); Calcium 9.4 mg/dL (8.4-10.2); Carbon Dioxide 25 mmol/L (22-30); Chloride 99 mmol/L (98-107); Glucose 186 mg/dL (74-99); INR 1.1 (<1.2); Magnesium 1.9 mg/dL (1.6-2.3); Partial Thromboplastin Time 22.6 sec (22.0-30.0); Potassium 4.2 mmol/L (3.5-5.1); Prothrombin Time 10.3 sec (9.0-12.0); Sodium 134 mmol/L (137-145)
--- NOTE | 2017-07-06 20:21 | XR ---
EXAMINATION TYPE: XR chest 2V DATE OF EXAM: 07/06/2017 COMPARISON: 05/24/2017 INDICATION: Chest pain shortness of breath chest heaviness TECHNIQUE: Frontal and lateral views of the chest are obtained. FINDINGS: The heart size is normal. The pulmonary vasculature is normal. The lungs are clear. IMPRESSION: 1. No acute pulmonary process.
[2017-07-06 20:27] LABS: Creatine Kinase 172 U/L (55-170)
[2017-07-06] MEDS ORDERED: SODIUM CHLORIDE 0.9% 500 ML IV ONE (20:27)
[2017-07-06 20:41] LABS: Troponin I <0.012 ng/mL (0.000-0.034)
[2017-07-06 20:47] LABS: Creatine Kinase MB 4.1 ng/mL (0.0-2.4)
[2017-07-06] MEDS ORDERED: hydrALAZINE HCL 20 MG/ML 1 ML VIAL IVP STA (21:40)
--- NOTE | 2017-07-06 22:13 | CT ---
EXAMINATION TYPE: CT brain wo con DATE OF EXAM: 07/06/2017 COMPARISON: NONE INDICATION: History of stroke. Hypertension today. DLP: 1092.2 mGycm, Automated exposure control for dose reduction was used. CONTRAST: None CT of the brain is performed utilizing 3 mm thick sections through the posterior fossa and 3 mm thick sections through the remaining calvarium. Study is performed within 24 hours of arrival to the hosp ital. No abnormal hyperdensity is present to suggest an acute intracranial hemorrhage. No mass lesion is evident. No acute infarcts are evident. Subcortical infarct which may be old is in the left frontal parietal r egion. No mass effect or effacement of the adjacent sulci is evident. Some ex vacuo effect appears to be a left lateral ventricle. Ventricles and sulci are appropriate for the patient age. Paranasal sinuses and mastoid air cells within the [id number] are clear. IMPRESSIONS: 1. Subcortical infarct left frontal parietal region is likely old. No comparison images are availab le for confirmation. Correlate with the clinical symptoms.
[2017-07-06] MEDS ORDERED: amLODIPine 5 MG TAB PO STA (22:27)
[2017-07-06] MEDS ORDERED: cloNIDine HCL 0.1 MG TAB PO STA (23:52)
[2017-07-07 00:15] VITALS: BP 160/79; PULSE 91; RESP 16; TEMP 98.7
[2017-07-07] MEDS ORDERED: LOSARTAN-HCTZ 50-12.5 MG 1 EACH TAB PO SCH (09:00)
--- NOTE | 2017-07-09 05:22 | CDI ---
Documentation Clarification OP Dear Jimi Burger Please do addendum to ED report for missing Clinical impression & disposition. Thank you, Alka Latham Cryptologic Linguist If you have any questions, please contact Material Engineer at [phone] [facility]
== END 2017-07-07 00:15 | disposition home or self-care (01) ==
LOC: EC 19:13
DX: I10 Essential (primary) hypertension (principal); R07.89 Other chest pain; E11.9 Type 2 diabetes mellitus without complications; E78.5 Hyperlipidemia, unspecified; N40.0 Benign prostatic hyperplasia without lower urinary tract symptoms; Z86.73 Personal history of transient ischemic attack (TIA), and cerebral infarction without residual deficits; Z79.84 Long term (current) use of oral hypoglycemic drugs; Z79.899 Other long term (current) drug therapy; Z88.1 Allergy status to other antibiotic agents; Z88.4 Allergy status to anesthetic agent
CPT/HCPCS: 99285; 96374; 96361; 36415; 93005; 83880; 80053; 82550; 82553; 83735; 84484; 85025; 85610; 85730; 71046; 70450; J0360

== ENCOUNTER 2017-10-29 22:08 | Emergency (ER) | payer MEDICARE ==
[2017-10-29 22:13] VITALS: TEMP 98.3
[2017-10-29] MEDS ORDERED: MORPHINE SULFATE 4 MG/ML SYRINGE IV STA (22:17)
[2017-10-29] MEDS ORDERED: SODIUM CHLORIDE 0.9% 1,000 ML IV STA (22:17)
[2017-10-29 22:43] LABS: Basophils % (A) 0 %; Eosinophils # (A) 0.3 k/uL (0-0.7); Eosinophils % (A) 5 %; HCT 41.7 % (39.0-53.0); HGB 15.1 gm/dL (13.0-17.5); Hyperchromasia Slight; Lymphocytes # (A) 1.5 k/uL (1.0-4.8); Lymphocytes % (A) 25 %; MCH 30.5 pg (25.0-35.0); MCHC 36.2 g/dL (31.0-37.0); MCV 84.2 fL (80.0-100.0); Mean Platelet Volume 6.6; Monocytes # (A) 0.3 k/uL (0-1.0); Monocytes % (A) 5 %; Neutrophils # (A) 3.9 k/uL (1.3-7.7); Neutrophils % (A) 64 %; Platelet Count 172 k/uL (150-450); RBC 4.95 m/uL (4.30-5.90); WBC 6.1 k/uL (3.8-10.6)
--- NOTE | 2017-10-29 22:47 | ED ---
General Adult HPI - General Chief complaint: Shortness of Breath Stated complaint: THIERNO Time Seen by Provider: 10/29/17 22:14 Source: patient, family, RN notes reviewed, old records reviewed Mode of arrival: wheelchair Limitations: no limitations - History of Present Illness Initial comments: This is a 72-year-old male the ER for evaluation. Patient coming in for evasive severe chest pain anterior chest pain epigastric chest pain. Patient has history of high blood pressure, surgical history includes cholecystectomy. Patient states symptoms 2 days, no improving symptoms, patient did take Tums with no help. No recent travel history no sick contacts no trauma. No fevers or cough congestion - Related Data Home Medications Medication Instructions Recorded Confirmed Atorvastatin Calcium [Lipitor] 10 mg PO HS 05/23/17 10/29/17 Hydrochlorothiazide [Hydrodiuril] 25 mg PO DAILY 05/23/17 10/29/17 Losartan [Cozaar] 50 mg PO BID 05/23/17 10/29/17 Tamsulosin [Flomax] 0.4 mg PO HS 05/23/17 10/29/17 metFORMIN HCL [Glucophage Xr] 500 mg PO BID 05/23/17 10/29/17 Gabapentin 600 mg PO DAILY 10/29/17 10/29/17 Pantoprazole Sodium [Protonix] 40 mg PO DAILY 10/29/17 10/29/17 amLODIPine [Norvasc] 5 mg PO DAILY 10/29/17 10/29/17 Allergies Allergy/AdvReac Type Severity Reaction Status Date / Time levofloxacin [From Levaquin] Allergy Rash/Hives Verified 10/29/17 22:47 ketamine AdvReac Confusion Verified 10/29/17 22:47 Review of Systems ROS Statement: Those systems with pertinent positive or pertinent negative responses have been documented in the HPI. ROS Other: All systems not noted in ROS Statement are negative. 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 History of Any Multi-Drug Resistant Organisms: None Reported Past Surgical History: Back Surgery, Cholecystectomy, Joint Replacement Additional Past Surgical History / Comment(s): bilateral total hip arthroplasties, low back surgery-has titanium cage, bilateral cataract removals with lens implants, colonoscopies with benign polypectomy. Past Anesthesia/Blood Transfusion Reactions: No Reported Reaction Past Psychological History: No Psychological Hx Reported Smoking Status: Never smoker Past Alcohol Use History: None Reported Past Drug Use History: None Reported - Past Family History Father Family Medical History: CVA/TIA Additional Family Medical History / Comment(s): Father from a CVA at the age of 60 yrs. Mother Additional Family Medical History / Comment(s): Mother at the age of 45yrs thought to be d/t cerebral hemorrhage. General Exam Limitations: no limitations General appearance: alert, in no apparent distress, anxious Head exam: Present: atraumatic, normocephalic, normal inspection Eye exam: Present: normal appearance, PERRL, EOMI. Absent: scleral icterus, conjunctival injection, periorbital swelling ENT exam: Present: normal exam, mucous membranes moist Neck exam: Present: normal inspection. Absent: tenderness, meningismus, lymphadenopathy Respiratory exam: Present: normal lung sounds bilaterally. Absent: respiratory distress, wheezes, rales, rhonchi, stridor Cardiovascular Exam: Present: regular rate, normal rhythm, normal heart sounds. Absent: systolic murmur, diastolic murmur, rubs, gallop, clicks GI/Abdominal exam: Present: soft, normal bowel sounds. Absent: distended, tenderness, guarding, rebound, rigid Extremities exam: Present: normal inspection, full ROM, normal capillary refill. Absent: tenderness, pedal edema, joint swelling, calf tenderness Back exam: Present: normal inspection Neurological exam: Present: alert, oriented X3, CN II-XII intact Psychiatric exam: Present: normal affect, normal mood Skin exam: Present: warm, dry, intact, normal color. Absent: rash Course Vital Signs 10/29/17 22:10 Temperature 98.3 F Pulse Rate 73 Respiratory 24 Rate Blood Pressure 160/80 O2 Sat by Pulse 100 Oximetry EKG Findings - EKG Comments: EKG Findings:: EKG shows sinus rhythm rate of 80, ID 24, QRS 08, QTc 433 Medical Decision Making - Lab Data Result diagrams: 10/29/17 22:25 10/29/17 22:25 Lab Results 10/29/17 10/29/17 10/29/17 Range/Units 22:25 22:25 22:25 WBC 6.1 (3.8-10.6) k/uL RBC 4.95 (4.30-5.90) m/uL Hgb 15.1 (13.0-17.5) gm/dL Hct 41.7 (39.0-53.0) % MCV 84.2 (80.0-100.0) fL MCH 30.5 (25.0-35.0) pg MCHC 36.2 (31.0-37.0) g/dL RDW 14.0 (11.5-15.5) % Plt Count 172 (150-450) k/uL Neutrophils % 64 % Lymphocytes % 25 % Monocytes % 5 % Eosinophils % 5 % Basophils % 0 % Neutrophils # 3.9 (1.3-7.7) k/uL Lymphocytes # 1.5 (1.0-4.8) k/uL Monocytes # 0.3 (0-1.0) k/uL Eosinophils # 0.3 (0-0.7) k/uL Basophils # 0.0 (0-0.2) k/uL Hyperchromasia Slight PT (9.0-12.0) sec INR (<1.2) APTT (22.0-30.0) sec Sodium 130 L (137-145) mmol/L Potassium 4.2 (3.5-5.1) mmol/L Chloride 95 L (98-107) mmol/L Carbon Dioxide 22 (22-30) mmol/L Anion Gap 13 mmol/L BUN 20 (9-20) mg/dL Creatinine 0.81 (0.66-1.25) mg/dL Est GFR (CKD-EPI)AfAm >90 (>60 ml/min/1.73 sqM) Est GFR (CKD-EPI)NonAf 89 (>60 ml/min/1.73 sqM) Glucose 253 H (74-99) mg/dL Calcium 9.9 (8.4-10.2) mg/dL Magnesium 1.6 (1.6-2.3) mg/dL Total Bilirubin 1.9 H (0.2-1.3) mg/dL AST 28 (17-59) U/L ALT 47 (21-72) U/L Alkaline Phosphatase 75 (38-126) U/L Total Creatine Kinase 271 H (55-170) U/L CK-MB (CK-2) 7.0 H* (0.0-2.4) ng/mL CK-MB (CK-2) Rel Index 2.6 Troponin I <0.012 (0.000-0.034) ng/mL Total Protein 7.4 (6.3-8.2) g/dL Albumin 4.6 (3.5-5.0) g/dL 10/29/17 Range/Units 22:25 WBC (3.8-10.6) k/uL RBC (4.30-5.90) m/uL Hgb (13.0-17.5) gm/dL Hct (39.0-53.0) % MCV (80.0-100.0) fL MCH (25.0-35.0) pg MCHC (31.0-37.0) g/dL RDW (11.5-15.5) % Plt Count (150-450) k/uL Neutrophils % % Lymphocytes % % Monocytes % % Eosinophils % % Basophils % % Neutrophils # (1.3-7.7) k/uL Lymphocytes # (1.0-4.8) k/uL Monocytes # (0-1.0) k/uL Eosinophils # (0-0.7) k/uL Basophils # (0-0.2) k/uL Hyperchromasia PT 10.1 (9.0-12.0) sec INR 1.0 (<1.2) APTT 23.3 (22.0-30.0) sec Sodium (137-145) mmol/L Potassium (3.5-5.1) mmol/L Chloride (98-107) mmol/L Carbon Dioxide (22-30) mmol/L Anion Gap mmol/L BUN (9-20) mg/dL Creatinine (0.66-1.25) mg/dL Est GFR (CKD-EPI)AfAm (>60 ml/min/1.73 sqM) Est GFR (CKD-EPI)NonAf (>60 ml/min/1.73 sqM) Glucose (74-99) mg/dL Calcium (8.4-10.2) mg/dL Magnesium (1.6-2.3) mg/dL Total Bilirubin (0.2-1.3) mg/dL AST (17-59) U/L ALT (21-72) U/L Alkaline Phosphatase (38-126) U/L Total Creatine Kinase (55-170) U/L CK-MB (CK-2) (0.0-2.4) ng/mL CK-MB (CK-2) Rel Index Troponin I (0.000-0.034) ng/mL Total Protein (6.3-8.2) g/dL Albumin (3.5-5.0) g/dL Disposition Clinical Impression: GERD (gastroesophageal reflux disease) Disposition: HOME SELF-CARE Condition: Good Instructions: Gastroesophageal Reflux Disease (ED), Peptic Ulcer (ED), Gastritis (ED) Is patient prescribed a controlled substance at d/c from ED?: No Referrals: Eddie Oakley DO [Primary Care Provider] - 1-2 days
[2017-10-29 22:49] LABS: Partial Thromboplastin Time 23.3 sec (22.0-30.0); Prothrombin Time 10.1 sec (9.0-12.0)
[2017-10-29 22:50] LABS: ALT 47 U/L (21-72); AST 28 U/L (17-59); Albumin 4.6 g/dL (3.5-5.0); Alkaline Phosphatase 75 U/L (38-126); Anion Gap 13 mmol/L; Blood Urea Nitrogen 20 mg/dL (9-20); Calcium 9.9 mg/dL (8.4-10.2); Carbon Dioxide 22 mmol/L (22-30); Chloride 95 mmol/L (98-107); Glucose 253 mg/dL (74-99); Magnesium 1.6 mg/dL (1.6-2.3); Potassium 4.2 mmol/L (3.5-5.1); Sodium 130 mmol/L (137-145); Total Bilirubin 1.9 mg/dL (0.2-1.3); Total Protein 7.4 g/dL (6.3-8.2)
[2017-10-29] MEDS ORDERED: ONDANSETRON 4 MG/2 ML VIAL IVP STA (22:50)
[2017-10-29 23:02] LABS: Creatine Kinase 271 U/L (55-170)
[2017-10-29 23:15] LABS: Troponin I <0.012 ng/mL (0.000-0.034)
--- NOTE | 2017-10-29 23:35 | CT ---
EXAMINATION TYPE: CT angio chest DATE OF EXAM: 10/29/2017 11:18 PM COMPARISON: None HISTORY: upper abd pain CT DLP: 512.30 mGycm Automated exposure control for dose reduction was used. CONTRAST: CTA scan of the thorax is performed with IV Contrast, patient injected with 100 mL of Isovue 370, pul monary embolism protocol. There are 3-D post processed images.. FINDINGS: The lungs are clear of consolidation. There is no pleural effusion. There is no pericardial effusion. There are a few mediastinal and bronchial lymph nodes that measure up to 1 cm. Thoracic aorta shows no sign of aneurysm or dissection. Ascending aorta measures 3.8 cm. There are no filling defects in the pulmonary arteries. IMPRESSION: NO EVIDENCE OF PULMONARY EMBOLISM. NONSPECIFIC MEDIASTINAL AND BRONCHIAL LYMPH NODES.
--- NOTE | 2017-10-29 23:42 | CT ---
EXAMINATION TYPE: CT abdomen pelvis w con DATE OF EXAM: 10/29/2017 COMPARISON: HISTORY: pain CT DLP: 1684.40 mGycm Automated exposure control for dose reduction was used. TECHNIQUE: Helical acquisition of images was performed from the lung bases through the pelvis. CONTRAST: Performed without Oral Contrast and with IV Contrast, patient injected with 100 mL of Isovue 370. FINDINGS: Lung bases are clear of consolidation. There is no pleural effusion. There is no pericardial effusion . There is irregular 10 mm linear infiltrate in the medial right lower lobe. This could relate to sca rring. Liver spleen appear normal. Bile ducts are not dilated. There are clips from cholecystectomy. There i s a 2 cm oval-shaped cyst or lymph node adjacent to posterior body of the pancreas. There is no adrenal mass. There are multiple renal bilateral cortical cysts. These measure up to 4.5 cm. There is no hydronephrosis. There is no retroperitoneal adenopathy. There is no ascites. Bladder distends smoothly. There is metal artifact from hip prosthesis. There is no sign of free air. Appendi x appears normal. There is small ventral hernia that contains fat. This measures 2 x 1 cm. There is n o intestinal wall thickening. There are no dilated loops. There is metal artifact from posterior fusi on surgery from L3 to L5. There is no compression fracture. IMPRESSION: Renal cortical cysts. Small lymph node or cyst at the posterior aspect of the body of the pancreas. No sign of acute abdomen and pelvis.
[2017-10-29] MEDS ORDERED: MAG HYDROX/AL HYDROX/SIMETH 30 ML, HYOSCYAMINE ELIXIR 10 ML, CIMETIDINE HCL 300 MG PO STA ×3 (23:48)
[2017-10-29 23:57] VITALS: BP 138/73; PULSE 77; RESP 16
== END 2017-10-30 00:02 | disposition home or self-care (01) ==
LOC: EC 22:08
DX: K21.9 Gastro-esophageal reflux disease without esophagitis (principal); E78.5 Hyperlipidemia, unspecified; I10 Essential (primary) hypertension; E11.9 Type 2 diabetes mellitus without complications; N40.0 Benign prostatic hyperplasia without lower urinary tract symptoms; Z79.84 Long term (current) use of oral hypoglycemic drugs; Z79.899 Other long term (current) drug therapy; Z88.1 Allergy status to other antibiotic agents; Z88.4 Allergy status to anesthetic agent; Z86.69 Personal history of other diseases of the nervous system and sense organs; Z90.49 Acquired absence of other specified parts of digestive tract
CPT/HCPCS: 36415; 93005; 80053; 82550; 82553; 83735; 84484; 85025; 85610; 85730; 71275; 74177; 99285; 96374; 96375; 96361; J2270; J2405; Q9967

== ENCOUNTER 2018-06-01 08:54 | Day surgery (SDC) | payer MEDICARE ==
[2018-05-28 10:10] VITALS: BMI 33.7
[~2018-06-01 08:54] MED LIST: LACTATED RINGERS 1,000 ML IV SCH; LIDOCAINE 1% 20 ML VIAL (10MG/ML) FOR IV START INTRADERMA PRN
[2018-06-01 09:09] VITALS: TEMP 98
[2018-06-01] MEDS ORDERED: LACTATED RINGERS 1,000 ML IV ONE (09:11)
[2018-06-01] MEDS ORDERED: LIDOCAINE 1% 20 ML VIAL (10MG/ML) FOR IV START INTRADERMA ONE (09:11)
[2018-06-01 09:19] LABS: Glucose,Whole Blood 186 mg/dL (75-99)
[2018-06-01] MEDS ORDERED: PROPOFOL 10 MG/ML 20 ML VIAL IV ONE (09:55)
--- NOTE | 2018-06-01 10:32 | P.PCN ---
Date of Procedure: 06/01/18 Procedure(s) Performed: Procedure: Total colonoscopy. Preoperative diagnosis: Screening for neoplasia. Postoperative diagnosis: Less than ideal preparation, otherwise, exam within normal limits. Preparation: HalfLytely prep. Sedation: Was provided by anesthesia. Brief clinical history: The patient is a 73-year-old male who is scheduled for this several acid because of history of polyps. His last exam was around 3 years ago. The patient has no abdominal complaints, bleeding or anemia. Procedure: With the patient on his left lateral decubitus position and after informed consent and adequate sedation, the perianal area was inspected and it did not show any fissures or fistulas. There were no masses felt on digital rectal examination. The Olympus CFH 190L video colonoscope was then inserted in the rectum in the usual fashion and advanced to the cecum. Unfortunately, the preparation was less than ideal despite my spending time washing the bowel wall. There was no significant polyps or tumors. No obvious diverticular disease. The mucosa appeared healthy. I retroflexed the endoscope in the rectum before the endoscope was withdrawn. The patient tolerated the procedure well. Plan: The patient was reassured. I recommended repeat exam in 3 years. He natalya follow up with you as planned.
[2018-06-01 10:58] VITALS: BP 154/83; PULSE 68; RESP 16
== END 2018-06-01 11:10 | disposition home or self-care (01) ==
LOC: ORWHC2ENDO 08:54
DX: Z12.11 Encounter for screening for malignant neoplasm of colon (principal); E11.9 Type 2 diabetes mellitus without complications; I10 Essential (primary) hypertension; N40.0 Benign prostatic hyperplasia without lower urinary tract symptoms; E78.5 Hyperlipidemia, unspecified; M21.379 Foot drop, unspecified foot; Z79.84 Long term (current) use of oral hypoglycemic drugs; Z96.643 Presence of artificial hip joint, bilateral; Z86.73 Personal history of transient ischemic attack (TIA), and cerebral infarction without residual deficits; Z86.010 Personal history of colon polyps; Z88.4 Allergy status to anesthetic agent; Z79.899 Other long term (current) drug therapy; Z88.1 Allergy status to other antibiotic agents
CPT/HCPCS: J2704; G0105; 45378

== ENCOUNTER → 2019-11-15 | Outpatient (CLI) | payer MEDICARE ==
--- NOTE | 2019-11-15 15:24 | CT ---
EXAMINATION TYPE: CT abdomen w con DATE OF EXAM: 11/15/2019 COMPARISON: 10/29/2017 HISTORY: Pancreatic cyst. Right sided flank/abdominal pain, nausea and loss of appetite. CT DLP: 1707 mGycm CONTRAST: CT scan of the abdomen and pelvis is performed without Oral Contrast and with IV Contrast, patient in jected with 120ml mL of Isovue 370. FINDINGS: LUNG BASES-: No visible nodule. No infiltrate. LIVER/GB: The gallbladder surgically absent. No space occupying hepatic lesion. Biliary tree is of normal caliber. PANCREAS: No inflammation. Stable 1.6 cm cyst of the pancreatic tail no additional pancreatic lesion s noted. SPLEEN: No splenic enlargement. No lesion seen. Splenic artery aneurysm measuring 2.3 cm. ADRENALS: No nodule. No thickening. KIDNEYS/BLADDER: No hydronephrosis. No nephrolithiasis. Renal cystic changes noted.. Urinary bladd er grossly unremarkable. BOWEL: Normal appendix. Normal bowel caliber. No inflammation. LYMPH NODES: No greater than 1cm abdominal or pelvic lymph nodes are appreciated. AORTA: No significant abnormality. OSSEOUS STRUCTURES: Degenerative changes thoracolumbar spine and extensive postoperative change lumba r spine. OTHER: No significant additional abnormality is seen. IMPRESSION: 1. Stable pancreatic cystic lesion. This is likely reflective of a small pseudocyst. 2. Renal cystic changes. 3. Partially calcified splenic artery aneurysm.
== END | disposition home or self-care (01) ==
LOC: RADCTMAIN 14:14
PROVIDERS: ATTEND Family Medicine
DX: K86.2 Cyst of pancreas (principal); N28.1 Cyst of kidney, acquired; I72.8 Aneurysm of other specified arteries
CPT/HCPCS: 82565; 84520; 74160; 36415; Q9967

== ENCOUNTER → 2020-01-11 | Outpatient (CLI) | payer MEDICARE ==
--- NOTE | 2020-01-12 07:04 | MR ---
EXAMINATION TYPE: MR abdomen wo/w con DATE OF EXAM: 01/11/2020 COMPARISON: CT abdomen 11/15/2019 HISTORY: Cyst and pseudocyst of the pancreas CONTRAST: Standard multiplanar, multisequence MRI departmental protocol utilizing 11.5 mL intravenous Gadavist gadolinium contrast. Liver has normal size and contour. The bile ducts are not dilated. Gallbladder is absent. Spleen is e nlarged and measures 16 cm. There is no evidence of splenic mass. Stomach is intact. There is 1.7 cm rounded thin wall fluid collection on the posterior aspect of the tail of the pancreas consistent wit h a pseudocyst. The pancreatic duct appears normal. There is mild thinning of the pancreas. There is no pathologic enhancement. There is no sign of adrenal mass. There are multiple bilateral renal cortical cysts. The largest is i n the lower pole right kidney measures 4.7 cm. There is no hydronephrosis. I see no evidence of a osvaldo id renal mass. There is no sign of retroperitoneal adenopathy. There is no ascites. There is no sign of pleural effusion. IMPRESSION: Thin wall cystic fluid collection in the posterior tail of the pancreas consistent with a pseudocyst unchanged compared to the recent CT scan. Pancreatic atrophy. Multiple bilateral renal cortical cysts unchanged.. Splenomegaly unchanged.
== END | disposition home or self-care (01) ==
LOC: RADMRIMAIN 15:07
PROVIDERS: ATTEND Internal Medicine
DX: K86.2 Cyst of pancreas (principal); K86.89 Other specified diseases of pancreas; R16.1 Splenomegaly, not elsewhere classified; N28.1 Cyst of kidney, acquired
CPT/HCPCS: 74183; A9585

== ENCOUNTER 2020-02-20 07:01 | Inpatient (IN) | payer MEDICARE ==
[2020-02-20] MEDS ORDERED: SODIUM CHLORIDE 0.9% 1,000 ML IV STA (07:24)
[2020-02-20] MEDS ORDERED: NITROGLYCERIN OINT 1 INCH/GM PACKET TOPICAL STA (07:24)
--- NOTE | 2020-02-20 07:27 | ED ---
General Adult HPI - General Chief complaint: Chest Pain Stated complaint: Chest Pain Time Seen by Provider: 02/20/20 07:05 Source: patient, EMS, RN notes reviewed Mode of arrival: EMS Limitations: no limitations - History of Present Illness Initial comments: Patient is a pleasant 74-year-old male presenting to the emergency Department with complaints of chest discomfort. Onset of symptoms was around 3 AM. Discomfort has been mild and remains mild. Patient has had some associated nausea and has had a couple episodes of diaphoresis. No history of similar symptoms previously. No radiation. No dyspnea. No leg pain or leg swelling. Discomfort is described as tightness. Patient did receive aspirin by EMS on arrival. - Related Data Home Medications Medication Instructions Recorded Confirmed Atorvastatin Calcium [Lipitor] 10 mg PO HS 05/23/17 11/23/19 Losartan [Cozaar] 50 mg PO BID 05/23/17 11/23/19 Tamsulosin [Flomax] 0.4 mg PO HS 05/23/17 11/23/19 metFORMIN HCL [Glucophage Xr] 500 mg PO BID 05/23/17 11/23/19 Gabapentin 300 mg PO BID 10/29/17 11/23/19 amLODIPine [Norvasc] 5 mg PO HS 10/29/17 11/23/19 Omeprazole [PriLOSEC] 40 mg PO BID 11/19/19 11/23/19 Vitamin D3 (Unknown Dose) 1 tab PO DAILY 11/19/19 11/23/19 Allergies Allergy/AdvReac Type Severity Reaction Status Date / Time levofloxacin [From Levaquin] Allergy Rash/Hives Verified 11/23/19 07:17 ketamine AdvReac Dyspnea Verified 11/23/19 07:17 Review of Systems ROS Statement: Those systems with pertinent positive or pertinent negative responses have been documented in the HPI. ROS Other: All systems not noted in ROS Statement are negative. Constitutional: Denies: fever Eyes: Denies: eye pain ENT: Denies: ear pain Respiratory: Denies: cough, dyspnea Cardiovascular: Reports: chest pain Endocrine: Denies: fatigue Gastrointestinal: Reports: nausea. 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 Hx ulcers in stomach; c/o abd pain, poor appetite for few months now. History of Any Multi-Drug Resistant Organisms: None Reported Past Surgical History: Back Surgery, Cholecystectomy, Joint Replacement Additional Past Surgical History / Comment(s): BILAT SHARAD, low back surgery-has titanium cage, bilateral cataract removals with lens implants, colonoscopies with benign polypectomy, EGD. Past Anesthesia/Blood Transfusion Reactions: Previous Problems w/ Anesthesia Additional Past Anesthesia/Blood Transfusion Reaction / Comment(s): Avoids Ketamine, "trouble getting my breath, gasping." Past Psychological History: No Psychological Hx Reported Smoking Status: Never smoker - Past Family History Father Family Medical History: CVA/TIA Additional Family Medical History / Comment(s): Father from a CVA at the age of 60 yrs. Mother Additional Family Medical History / Comment(s): Mother at the age of 45yrs thought to be d/t cerebral hemorrhage. General Exam Limitations: no limitations General appearance: alert, in no apparent distress Head exam: Present: normocephalic Eye exam: Present: normal appearance Neck exam: Present: normal inspection Respiratory exam: Present: normal lung sounds bilaterally. Absent: chest wall tenderness Cardiovascular Exam: Present: regular rate, normal rhythm, normal heart sounds Expanded Peripheral pulses: 2+: Radial (R), Radial (L), Dorsalis Pedis (R), Dorsalis Pedis (L) GI/Abdominal exam: Present: soft. Absent: tenderness Extremities exam: Present: normal inspection. Absent: pedal edema, calf tenderness Neurological exam: Present: alert Psychiatric exam: Present: normal affect, normal mood Skin exam: Present: normal color Course Vital Signs 02/20/20 07:02 Temperature 98.6 F Pulse Rate 89 Respiratory 18 Rate Blood Pressure 150/90 O2 Sat by Pulse 98 Oximetry EKG Findings - EKG Comments: EKG Findings:: Sinus rhythm at 87. For screening AV block with WI of 288. QRS 104. QT 354. QTC 425. Left axis. Q wave in V1 and V2. No acute ST change. Medical Decision Making - Medical Decision Making Patient reevaluated and resting comfortably in bed, essentially symptom-free at this time. Patient and family updated on results and plan. Case was discussed in detail with Dr. Clarke, who will admit covering for Dr. Oakley. - Lab Data Result diagrams: 02/20/20 07:28 02/20/20 07:28 Lab Results 02/20/20 02/20/20 02/20/20 Range/Units 07:28 07:28 07:28 WBC 5.0 (3.8-10.6) k/uL RBC 4.77 (4.30-5.90) m/uL Hgb 14.3 (13.0-17.5) gm/dL Hct 40.5 (39.0-53.0) % MCV 84.9 (80.0-100.0) fL MCH 30.1 (25.0-35.0) pg MCHC 35.4 (31.0-37.0) g/dL RDW 13.4 (11.5-15.5) % Plt Count 153 (150-450) k/uL MPV 7.5 Neutrophils % 66 % Lymphocytes % 25 % Monocytes % 5 % Eosinophils % 2 % Basophils % 1 % Neutrophils # 3.3 (1.3-7.7) k/uL Lymphocytes # 1.2 (1.0-4.8) k/uL Monocytes # 0.3 (0-1.0) k/uL Eosinophils # 0.1 (0-0.7) k/uL Basophils # 0.0 (0-0.2) k/uL PT 10.8 (9.0-12.0) sec INR 1.1 (<1.2) APTT 23.4 (22.0-30.0) sec Sodium 137 (137-145) mmol/L Potassium 3.8 (3.5-5.1) mmol/L Chloride 106 (98-107) mmol/L Carbon Dioxide 26 (22-30) mmol/L Anion Gap 5 mmol/L BUN 24 H (9-20) mg/dL Creatinine 0.80 (0.66-1.25) mg/dL Est GFR (CKD-EPI)AfAm >90 (>60 ml/min/1.73 sqM) Est GFR (CKD-EPI)NonAf 89 (>60 ml/min/1.73 sqM) Glucose 163 H (74-99) mg/dL Calcium 9.2 (8.4-10.2) mg/dL Magnesium 1.6 (1.6-2.3) mg/dL Total Bilirubin 1.7 H (0.2-1.3) mg/dL AST 29 (17-59) U/L ALT 27 (4-49) U/L Alkaline Phosphatase 73 (38-126) U/L Troponin I (0.000-0.034) ng/mL Total Protein 6.9 (6.3-8.2) g/dL Albumin 3.8 (3.5-5.0) g/dL 02/20/20 Range/Units 07:28 WBC (3.8-10.6) k/uL RBC (4.30-5.90) m/uL Hgb (13.0-17.5) gm/dL Hct (39.0-53.0) % MCV (80.0-100.0) fL MCH (25.0-35.0) pg MCHC (31.0-37.0) g/dL RDW (11.5-15.5) % Plt Count (150-450) k/uL MPV Neutrophils % % Lymphocytes % % Monocytes % % Eosinophils % % Basophils % % Neutrophils # (1.3-7.7) k/uL Lymphocytes # (1.0-4.8) k/uL Monocytes # (0-1.0) k/uL Eosinophils # (0-0.7) k/uL Basophils # (0-0.2) k/uL PT (9.0-12.0) sec INR (<1.2) APTT (22.0-30.0) sec Sodium (137-145) mmol/L Potassium (3.5-5.1) mmol/L Chloride (98-107) mmol/L Carbon Dioxide (22-30) mmol/L Anion Gap mmol/L BUN (9-20) mg/dL Creatinine (0.66-1.25) mg/dL Est GFR (CKD-EPI)AfAm (>60 ml/min/1.73 sqM) Est GFR (CKD-EPI)NonAf (>60 ml/min/1.73 sqM) Glucose (74-99) mg/dL Calcium (8.4-10.2) mg/dL Magnesium (1.6-2.3) mg/dL Total Bilirubin (0.2-1.3) mg/dL AST (17-59) U/L ALT (4-49) U/L Alkaline Phosphatase (38-126) U/L Troponin I <0.012 (0.000-0.034) ng/mL Total Protein (6.3-8.2) g/dL Albumin (3.5-5.0) g/dL - Radiology Data Radiology results: image reviewed (Chest x-ray shows no acute process) Disposition Clinical Impression: Chest pain Disposition: ADMITTED IP TO THIS HOSP Is patient prescribed a controlled substance at d/c from ED?: No Referrals: Eddie Oakley DO [Primary Care Provider] - 1-2 days Decision Time: 08:46
[2020-02-20 07:55] LABS: ALT 27 U/L (4-49); AST 29 U/L (17-59); African American GFR (CKD) >90 (>60 ml/min/1.73 sqM); Albumin 3.8 g/dL (3.5-5.0); Alkaline Phosphatase 73 U/L (38-126); Anion Gap 5 mmol/L; Blood Urea Nitrogen 24 mg/dL (9-20); Calcium 9.2 mg/dL (8.4-10.2); Carbon Dioxide 26 mmol/L (22-30); Chloride 106 mmol/L (98-107); Glucose 163 mg/dL (74-99); Magnesium 1.6 mg/dL (1.6-2.3); Non-African American GFR(CKD) 89 (>60 ml/min/1.73 sqM); Potassium 3.8 mmol/L (3.5-5.1); Sodium 137 mmol/L (137-145); Total Bilirubin 1.7 mg/dL (0.2-1.3); Total Protein 6.9 g/dL (6.3-8.2)
[2020-02-20 07:57] LABS: INR 1.1 (<1.2); Partial Thromboplastin Time 23.4 sec (22.0-30.0); Prothrombin Time 10.8 sec (9.0-12.0)
--- NOTE | 2020-02-20 08:04 | XR ---
EXAMINATION TYPE: XR chest 2V DATE OF EXAM: 02/20/2020 COMPARISON: 07/06/2017 TECHNIQUE: PA and lateral views submitted. HISTORY: Chest pain FINDINGS: The lungs are clear and there is no pneumothorax, pleural effusion, or focal pneumonia. Arthropathy shoulders. Heart size normal no overt failure. IMPRESSION: 1. No acute process.
[2020-02-20 08:36] LABS: Basophils % (A) 1 %; Eosinophils # (A) 0.1 k/uL (0-0.7); Eosinophils % (A) 2 %; HCT 40.5 % (39.0-53.0); HGB 14.3 gm/dL (13.0-17.5); Lymphocytes # (A) 1.2 k/uL (1.0-4.8); Lymphocytes % (A) 25 %; MCH 30.1 pg (25.0-35.0); MCHC 35.4 g/dL (31.0-37.0); MCV 84.9 fL (80.0-100.0); Mean Platelet Volume 7.5; Monocytes # (A) 0.3 k/uL (0-1.0); Monocytes % (A) 5 %; Neutrophils # (A) 3.3 k/uL (1.3-7.7); Neutrophils % (A) 66 %; Platelet Count 153 k/uL (150-450); RBC 4.77 m/uL (4.30-5.90); RDW 13.4 % (11.5-15.5)
[2020-02-20] MEDS ORDERED: NITROGLYCERIN SL TABS 0.4 MG TAB SUBLINGUAL PRN (08:47)
[2020-02-20] MEDS ORDERED: ONDANSETRON 4 MG/2 ML VIAL IM STA (09:55)
[2020-02-20] MEDS ORDERED: amLODIPine 5 MG TAB PO SCH (10:00)
[2020-02-20] MEDS ORDERED: GABAPENTIN 300 MG CAP PO SCH (10:00)
[2020-02-20] MEDS ORDERED: NON FORMULARY DRUG (Esomeprazole Magnesium [Nexium] 20 MG Capsule.Dr) PO PRN (10:00)
[2020-02-20] MEDS ORDERED: LOSARTAN 50 MG TAB PO SCH (10:00)
[2020-02-20] MEDS ORDERED: ONDANSETRON 4 MG/2 ML VIAL IVP STA (10:11)
[2020-02-20] MEDS: PANTOPRAZOLE 40 MG TABLET PO SCH ×2 (10:50→17:16)
[2020-02-20] MEDS: metFORMIN 500 MG TAB PO SCH ×2 (10:50→15:49)
[2020-02-20] MEDS: MULTIVITAMINS, THERA 1 EACH TAB PO SCH (10:50)
[2020-02-20] MEDS ORDERED: amLODIPine 5 MG TAB PO STA (12:41)
[2020-02-20] MEDS ORDERED: LOSARTAN 50 MG TAB PO STA (12:42)
[2020-02-20] MEDS ORDERED: CAFFEINE CITRATE 60 MG/3 ML VIAL IV PRN (12:51)
[2020-02-20] MEDS ORDERED: AMINOPHYLLINE 500 MG/20 ML VIAL IV PRN (12:51)
[2020-02-20] MEDS: NITROGLYCERIN OINT 1 INCH/GM PACKET TOPICAL SCH ×2 (13:49→17:16)
[2020-02-20] MEDS: ENOXAPARIN 100 MG/ML SYRINGE SQ SCH ×2 (13:53→22:41)
[2020-02-20] MEDS ORDERED: METOPROLOL TARTRATE 25 MG TAB PO SCH (14:00)
[2020-02-20 15:34] LABS: Glucose,Whole Blood 168 mg/dL (75-99)
[2020-02-20] MEDS: GABAPENTIN 300 MG CAP PO SCH ×2 (15:49→21:52)
--- NOTE | 2020-02-20 16:13 | CONS ---
CONSULTATION This is a 74-year-old gentleman with a history of hypertension with a previous stroke related to accelerated hypertension from which he has recovered, still has some incoordination. He also has type 2 diabetes, hyperlipidemia, and degenerative joint disease and a previous back surgery with a footdrop. He is not so active in general and he came into the emergency room mainly with complaints of having epigastric and midsternal discomfort that woke him up around 3 o'clock in the morning. He had nausea and episodes of diaphoresis. He thinks he ate some chili last night and that may be the cause, but he has significant risk factors. EKG is unremarkable. Troponins are normal. The symptoms have improved quite a bit. He does not have any symptoms of chest discomfort now. Given his rather nondescript presentation with risk factors, we may be dealing with coronary disease, but I am not sure if this represents acute ischemia. However, given his risk factor profile, I am recommending that he should have a Lexiscan stress test and echocardiogram. He had a bad experience with a stress echo with dobutamine in the past in [place] in 2017. However, he is comfortable resting at the time of my evaluation. PAST MEDICAL HISTORY: Past medical history is remarkable for a CVA from which he has recovered, type 2 diabetes, hypertension, history of back surgery after which he had a footdrop. He also has a cholecystectomy and bilateral hip arthroplasty. MEDICATIONS: At home include Lipitor 10 mg, Cozaar 50 mg b.i.d., Flomax 0.4 mg daily, metformin, gabapentin, Norvasc 5 mg daily, omeprazole 40 mg b.i.d. PHYSICAL EXAMINATION: On examination, blood pressure is 160/80, pulse rate is 80 per minute and regular. HEENT unremarkable. Fundus was not examined by me. Neck is supple. There is no JVD. I do not hear a carotid bruit. Heart exam reveals S1, S2 heard normally. There is a short systolic murmur left sternal border. Lungs reveal diminished air entry. Abdomen is soft, nontender. Lower extremities reveal diminished pulses, trace edema. Central nervous system: A detailed exam was not performed. Grossly no focal motor deficits. EKG revealed sinus mechanism, leftward axis, poor R-wave progression, first-degree AV block. LABORATORY DATA: Suggests that 2 troponins are normal. IMPRESSION: 1. Chest discomfort, cannot exclude coronary artery disease. 2. Type 2 diabetes. 3. Hypertension. 4. Hyperlipidemia. 5. History of cerebrovascular accident from which he has recovered well. RECOMMENDATIONS: I am recommending that we place him on losartan 100 mg daily instead of 50 mg b.i.d., continue the nitroglycerin paste for now. I am recommending a Lexiscan stress test and echo to be performed tomorrow. I will place him on a small dose of metoprolol tartrate and continue his other medications. Aspirin will be 81 mg daily. The patient had a bad experience with the dobutamine echo. We will therefore do a Lexiscan stress test and also echocardiogram to assess LV function. I discussed my thoughts in detail with the patient. Thank you very much for the consult. SONALI / JUAN: [id number] /
--- NOTE | 2020-02-20 17:15 | P.HPIM ---
History of Present Illness H&P Date: 02/20/20 Chief Complaint: That chest discomfort History of presenting complaint: This is a pleasant [address] Oakley. Chronic stable medical conditions include diabetes, hypertension, stroke in 2015 that has left him with right hand fingers being numb, BPH peptic ulcer disease. Patient last night had a good helping of chili dinner. He really could not sleep. Zocor perspiration. Had a lot of nausea gas. To go blood pressure this morning does 109 x 1 09. Also had some chest discomfort not for too long to. No radiation. No dizziness nor lightheadedness. Did break out in a sweat. Decided to come in. Patient last stress test was 5 years ago. Denies any cardiac history. Review of systems: GEN.: None EYES: None HEENT: None NECK: None RESPIRATORY: None CARDIOVASCULAR: As above GASTROINTESTINAL: As above GENITOURINARY: None MUSCULOSKELETAL: None LYMPHATICS: None HEMATOLOGICAL: None PSYCHIATRY: None NEUROLOGICAL: Numbness of the right hand fingers following a stroke Past medical history to include: Stroke with the restaurant numbness of the right hand fingers and decreased motor skills, diabetes, hypertension, BPH, right foot dorsiflexed no damage during back surgery, peptic ulcer disease pancreatic cyst drained, Social history: Patient recently moved from [place] to [place]. . No smoking no alcohol. Physical examination: VITAL SIGNS: 98.6, 89, 18, 150/90, 98% 2 L GENERAL: BMI 34.1, laying in bed, awake. EYES: Pupils equal. Conjunctiva normal. HEENT: External appearance of nose and ears normal, oral cavity grossly normal. NECK: JVD not raised; masses not palpable. HEART: First and second heart sounds are normal; no edema. LUNGS: Respiratory rate normal; clear to auscultation. ABDOMEN: Soft, nontender, liver spleen not palpable, no masses palpable. PSYCH: Alert and oriented x3; mood and affect normal. NEUROLOGICAL: Cranial nerves grossly intact; no facial asymmetry, power and sensation grossly intact. LYMPHATICS: No lymph nodes palpable in the axilla and neck INVESTIGATIONS, reviewed in the clinical context: White count 5 hemoglobin 14.3 platelets 153 potassium 3.8 creatinine 0.8 Troponin I 3 negative EKG tracing personally reviewed by me-normal sinus rhythm, first-degree AV block Chest x-ray film personally reviewed by me-no obvious infiltrates Assessment: -This patient had a heavy serving of chili the night before his presentation. Had a very disturbed sleep. Perspiration cold significant nausea a lot of gas. Most of his presentation would be explained by severe dyspepsia. Patient does occasionally get GERD symptoms. -Left anterior chest wall pain rule out cardiac cause of his factors include diabetes, hypertension -Essential hypertension -BPH -Obesity BMI 34.1 Plan: Home medications resumed. Accu-Cheks will be followed. IV fluids. We'll give Tums [id number] and also had PPI. Care was discussed with the patient questions answered. Cardiology was consulted. The planning for a stress test. 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 Hx ulcers in stomach; c/o abd pain, poor appetite for few months now. History of Any Multi-Drug Resistant Organisms: None Reported Past Surgical History: Back Surgery, Cholecystectomy, Joint Replacement Additional Past Surgical History / Comment(s): BILAT SHARAD, low back surgery-has titanium cage, bilateral cataract removals with lens implants, colonoscopies with benign polypectomy, EGD. Past Anesthesia/Blood Transfusion Reactions: Previous Problems w/ Anesthesia Additional Past Anesthesia/Blood Transfusion Reaction / Comment(s): Avoids Ketamine, "trouble getting my breath, gasping." Past Psychological History: No Psychological Hx Reported Smoking Status: Never smoker - Past Family History Father Family Medical History: CVA/TIA Additional Family Medical History / Comment(s): Father from a CVA at the age of 60 yrs. Mother Additional Family Medical History / Comment(s): Mother at the age of 45yrs thought to be d/t cerebral hemorrhage. Medications and Allergies Home Medications Medication Instructions Recorded Confirmed Type Atorvastatin Calcium [Lipitor] 10 mg PO HS 05/23/17 02/20/20 History Losartan [Cozaar] 50 mg PO BID 05/23/17 02/20/20 History Tamsulosin [Flomax] 0.4 mg PO HS 05/23/17 02/20/20 History amLODIPine [Norvasc] 5 mg PO HS 10/29/17 02/20/20 History Omeprazole [PriLOSEC] 40 mg PO DAILY PRN 11/19/19 02/20/20 History Cholecalciferol [Vitamin D3 (25 2,000 unit PO DAILY 02/20/20 02/20/20 History Mcg = 1000 Iu)] Esomeprazole Magnesium [NexIUM] 20 mg PO DAILY PRN 02/20/20 02/20/20 History Gabapentin [Neurontin] 300 mg PO BID 02/20/20 02/20/20 History Insulin Detemir [Levemir Flextouch] 20 units SQ HS 02/20/20 02/20/20 History Multivitamins, Thera [Multivitamin 1 tab PO DAILY 02/20/20 02/20/20 History (formulary)] Pantoprazole Sodium [Protonix] 40 mg PO BID 02/20/20 02/20/20 History metFORMIN HCL [metFORMIN HCL ER] 500 mg PO BID 02/20/20 02/20/20 History Allergies Allergy/AdvReac Type Severity Reaction Status Date / Time levofloxacin [From [facility]] Allergy Rash/Hives Verified 02/20/20 09:43 ketamine AdvReac Dyspnea Verified 02/20/20 09:43 Physical Exam Vitals: Vital Signs Temp Pulse Resp BP Pulse Ox 02/20/20 09:11 73 16 164/86 96 02/20/20 07:02 98.6 F 89 18 150/90 98 Intake and Output 02/19/20 02/20/20 02/20/20 22:59 06:59 14:59 Other: Weight 107.955 kg Results CBC & Chem 7: 02/20/20 07:28 02/20/20 07:28 Labs: Abnormal Lab Results - Last 24 Hours (Table) 02/20/20 Range/Units 07:28 BUN 24 H (9-20) mg/dL Glucose 163 H (74-99) mg/dL Total Bilirubin 1.7 H (0.2-1.3) mg/dL
[2020-02-20] MEDS: CALCIUM CARBONATE LIQUID 500 MG/5 ML CUP PO SCH (18:46)
[2020-02-20 21:40] LABS: Glucose,Whole Blood 169 mg/dL (75-99)
[2020-02-20] MEDS: ATORVASTATIN 10 MG TAB PO SCH (21:52)
[2020-02-20] MEDS: amLODIPine 5 MG TAB PO SCH (21:53)
[2020-02-20] MEDS: TAMSULOSIN 0.4 MG CAP.ER.24H PO SCH (21:53)
[2020-02-20 22:39] LABS: Glucose,Whole Blood 188 mg/dL (75-99)
[2020-02-20] MEDS: INSULIN DETEMIR (LEVEMIR) 100 UNIT/ML SYR SQ SCH (22:39)
[2020-02-21 03:01] LABS: Cholesterol 156 mg/dL (<200); HDL Cholesterol 33 mg/dL (40-60); LDL Cholesterol,Calculated 91 mg/dL (0-99); Triglycerides 158 mg/dL (<150)
[2020-02-21] MEDS: NITROGLYCERIN OINT 1 INCH/GM PACKET TOPICAL SCH ×4 (03:19→17:03)
[2020-02-21 06:14] LABS: Glucose,Whole Blood 157 mg/dL (75-99)
[2020-02-21] MEDS: PANTOPRAZOLE 40 MG TABLET PO SCH ×2 (07:39→17:05)
[2020-02-21] MEDS ORDERED: REGADENOSON 0.4 MG/5 ML SYRINGE IV ONE (08:00)
[2020-02-21] MEDS ORDERED: ASPIRIN 81 MG PO SCH (09:00)
[2020-02-21] MEDS ORDERED: ASPIRIN 325 MG TAB PO SCH (09:00)
--- NOTE | 2020-02-21 10:21 | P.PN ---
Subjective Progress Note Date: 02/21/20 This is a 74-year-old gentleman who follows with Dr. Darling in the office,he has documented history of hypertension, prior CVA, diabetes, hyperlipidemia, degenerative joint disease, presented to the hospital with symptoms of epigastric discomfort and was seen in consultation over the weekend by Dr. Angelo Merrill. Patient was recommended undergo a Lexiscan stress test with echocardiogram with Doppler study. The patient was seen and examined this morning, denied any chest discomfort and is breathing overall is stable. Objective - Vital Signs Vital signs: Vital Signs Temp 97.3 F L 02/21/20 07:33 Pulse 76 02/21/20 07:33 Resp 16 02/21/20 09:00 BP 129/71 02/21/20 07:33 Pulse Ox 98 02/21/20 07:33 Intake & Output 02/20/20 02/21/20 02/21/20 18:59 06:59 18:59 Intake Total 200 Balance 200 Weight 107.955 kg 107.95 kg Intake: Oral 200 Other: Voiding Method Toilet Toilet Toilet # Voids 1 2 - Exam PHYSICAL EXAMINATION: GENERAL: 74-year-old gentleman in no acute distress at the time of my examination HEENT: Head is atraumatic, normocephalic. Pupils equal, round. Sclera anicteric. Conjunctiva are clear. Mucous membranes of the mouth are moist. Neck is supple. There is no elevated jugular venous pressure. No carotid bruit is heard. HEART EXAMINATION: S1 and S2 1 systolic murmur is heard CHEST EXAMINATION: Lungs are clear to auscultation and precussion. No chest wall tenderness is noted on palpation or with deep breathing. ABDOMEN: Soft, nontender. Bowel sounds are heard. No organomegaly noted. EXTREMITIES: 2+ peripheral pulses with no evidence of peripheral edema and no calf tenderness noted. NEUROLOGIC patient is awake, alert and oriented 3 . . - Labs CBC & Chem 7: 02/20/20 07:28 02/20/20 07:28 Labs: Abnormal Lab Results - Last 24 Hours (Table) 02/20/20 02/20/20 02/20/20 Range/Units 07:28 15:28 21:39 POC Glucose (mg/dL) 168 H 169 H (75-99) mg/dL Triglycerides 158 H (<150) mg/dL HDL Cholesterol 33 L (40-60) mg/dL 02/20/20 02/21/20 Range/Units 22:37 06:13 POC Glucose (mg/dL) 188 H 157 H (75-99) mg/dL Triglycerides (<150) mg/dL HDL Cholesterol (40-60) mg/dL Assessment and Plan Plan: Assessment and plan #1 chest discomfort, troponins negative 3, EKG shows a normal sinus rhythm with a first-degree AV block. No acute changes noted. #2 hypertension #3 hyperlipidemia #4 diabetes #5 history of prior CVA Plan Patient is scheduled today to undergo a Lexiscan stress test, he will also have an echocardiogram with Doppler study performed. Based on the results of this testing and patient's overall clinical course further recommendations will be made. DNP note has been reviewed, I agree with a documented findings and plan of care. Patient was seen and examined.
[2020-02-21] MEDS: LOSARTAN 50 MG TAB PO SCH (11:01)
[2020-02-21] MEDS: MULTIVITAMINS, THERA 1 EACH TAB PO SCH (11:01)
[2020-02-21] MEDS: CALCIUM CARBONATE LIQUID 500 MG/5 ML CUP PO SCH ×3 (11:01→17:05)
[2020-02-21] MEDS: metFORMIN 500 MG TAB PO SCH ×2 (11:02→17:05)
--- NOTE | 2020-02-21 11:06 | NM ---
"EXAMINATION TYPE: NM stress lexiscan cardiolite DATE OF EXAM: 02/21/2020 COMPARISON: NONE HISTORY: Chest pain TECHNIQUE: After the intravenous administration of 9.1 mCi Tc 99m Sestamibi - Cardiolite resting SPE CT images acquired 55 minutes post injection. The patient received 0.4mg Lexiscan, 26.6 mCi Tc 99m Sestamibi - Stress images obtained [address] injection . Patient was stressed with 0.4 mg Lexiscan. FINDINGS: There is a defect at the cardiac apex with some extension into the distal lateral wall. On resting images is has a more normal appearance Ejection fraction of 67% is normal. Wall motion appears normal. IMPRESSION: 1. Stress-induced ischemic change lateral wall at the cardiac apex. A [place] level critical message alert has been initiated for Ángel Clarke MD via the [facility] 0 | Critical Results System on 02/21/2020 11:04 AM. This message alert has been sent to Ángel mckenna MD via the preferences provided by the clinician for the receipt of Radiology Critical Findings. Iain chi [facility] [place] [id number]."
--- NOTE | 2020-02-21 13:01 | ECHOF ---
Referral Reason:chest pain, htn MEASUREMENTS -------- HEIGHT: 177.8 cm WEIGHT: 108.0 kg BP: 146/76 IVSd: 1.5 cm (0.6 - 1.1) LVIDd: 4.5 cm (3.9 - 5.3) LVPWd: 1.5 cm (0.6 - 1.1) EDV(Teich): 94 ml IVSs: 2.0 cm LVIDs: 2.7 cm LVPWs: 2.0 cm %IVS Thck: 34 % ESV(Teich): 28 ml EF(Teich): 70 % %FS: 40 % SV(Teich): 66 ml RVIDd: 4.8 cm (< 3.3) LALs A4C: 5.6 cm LAAs A4C: 20.6 cm LAESV A-L A4C: 64 ml LAESV MOD A4C: 60 ml LALs A2C: 5.5 cm LAAs A2C: 18.5 cm LAESV A-L A2C: 53 ml LAESV MOD A2C: 49 ml LAESV(A-L): 59 ml LAESV Index (A-L): 26.02 ml/m Ao Diam: 3.3 cm (2.0 - 3.7) AV Cusp: 2.4 cm (1.5 - 2.6) EPSS: 0.7 cm MV E Gonzalo: 0.69 m/s MV DecT: 176 ms MV Dec Hoke: 4.0 m/s MV A Gonzalo: 0.73 m/s MV E/A Ratio: 0.96 MV PHT: 51 ms LVOT Vmax: 0.92 m/s LVOT maxP.39 mmHg AV Vmax: 1.40 m/s AV maxP.86 mmHg TR Vmax: 2.13 m/s TR maxP.15 mmHg RAP: 5.00 mmHg RVSP: 23.15 mmHg MV EF SLOPE: 52.24 mm/s (70 - 150) MV EXCURSION: 13.26 mm (> 18.000) FINDINGS -------- Sinus rhythm. This was a technically adequate study. The left ventricular size is normal. There is moderate concentric left ventricular hypertrophy. O verall left ventricular systolic function is normal with, an EF between 55 - 60 %. The diastolic fi lling pattern is normal for the age of the patient 10.78. The right ventricle is moderate to severely enlarged. Normal LA size by volume 22+/-6 ml/m2. The right atrial size is normal. The aortic valve is trileaflet and appears structurally normal. There is mild aortic valve sclerosi s. There is no evidence of aortic regurgitation. There is no evidence of aortic stenosis. Mild mitral regurgitation is present. Mild tricuspid regurgitation present. There is no evidence of pulmonary hypertension. The right v entricular systolic pressure, as measured by Doppler, is 23.15mmHg. There is no pulmonic regurgitation present. The aortic root size is normal. IVC Not well visulized. There is no pericardial effusion. CONCLUSIONS -------- 1. The left ventricular size is normal. 2. There is moderate concentric left ventricular hypertrophy. 3. Overall left ventricular systolic function is normal with, an EF between 55 - 60 %. 4. The diastolic filling pattern is normal for the age of the patient 10.78 5. The right ventricle is moderate to severely enlarged. 6. There is mild aortic valve sclerosis. 7. Mild mitral regurgitation is present. 8. Mild tricuspid regurgitation present. REGISTERED NURSE MATERNAL CHILD: Elysia Simons RDCS
[2020-02-21] MEDS ORDERED: ALPRAZolam 0.25 MG TAB PO PRN (13:46)
[2020-02-21] MEDS ORDERED: SODIUM CHLORIDE 0.9% 1,000 ML in EMPTY BAG 1 BAG IV ONE (13:46)
[2020-02-21] MEDS ORDERED: NITROGLYCERIN SL TABS 0.4 MG TAB SUBLINGUAL PRN (13:46)
[2020-02-21] MEDS ORDERED: ALPRAZolam 0.5 MG TAB PO PRN (13:46)
--- NOTE | 2020-02-21 14:13 | EST ---
EXERCISE STRESS AGE: 74 SEX: M HT: 5'10" WT: 237 lbs. PROTOCOL: Lexiscan Cardiolite STAGE: N/A DURATION OF EXERCISE: N/A HEART RATE REST: 73 BLOOD PRESSURE REST: 136/71 MAXIMUM HEART RATE ACHIEVED: 97 MAXIMUM BLOOD PRESSURE: 136/71 85% MPHR: 125 100% MPHR: 147 METS: N/A INDICATIONS: Chest pain CLINICAL INFORMATION: STRESS DATA: Heart rate 75, pressure is 136/71 mmHg. Baseline EKG showed sinus mechanism; 0.4 mg of Lexiscan given over 15 seconds per protocol. Max heart rate was 97 beats per minute and maximum pressure was 136/71 mmHg. Clinically, the patient did develop some shortness of breath. The EKG did not show any significant ST or T-wave abnormalities concerning for ischemia. CONCLUSION: 1. Nondiagnostic electrocardiogram stress testing in response to Lexiscan. 2. Please follow up on the Cardiolite portion on a separate report from the Radiology Department. MMODL / IJN: [id number] /
[2020-02-21] MEDS: GABAPENTIN 300 MG CAP PO SCH ×2 (15:46→21:38)
[2020-02-21 16:45] LABS: Glucose,Whole Blood 214 mg/dL (75-99)
[2020-02-21 21:41] LABS: Glucose,Whole Blood 208 mg/dL (75-99)
[2020-02-21] MEDS: INSULIN ASPART (NovoLOG) 100 UNIT/ML VIAL SQ SCH (21:41)
[2020-02-21] MEDS: INSULIN DETEMIR (LEVEMIR) 100 UNIT/ML SYR SQ SCH (21:41)
[2020-02-21] MEDS: amLODIPine 5 MG TAB PO SCH (21:42)
[2020-02-21] MEDS: ATORVASTATIN 10 MG TAB PO SCH (21:42)
[2020-02-21] MEDS: TAMSULOSIN 0.4 MG CAP.ER.24H PO SCH (21:50)
--- NOTE | 2020-02-22 00:02 | P.PN ---
Progress Note - Text Progress Note Date: 02/21/20 Chief Complaint: That chest discomfort History of presenting complaint: This is a pleasant [address] Oakley. Chronic stable medical conditions include diabetes, hypertension, stroke in 2015 that has left him with right hand fingers being numb, BPH peptic ulcer disease. Patient last night had a good helping of chili dinner. He really could not sleep. Zocor perspiration. Had a lot of nausea gas. To go blood pressure this morning does 109 x 1 09. Also had some chest discomfort not for too long to. No radiation. No dizziness nor lightheadedness. Did break out in a sweat. Decided to come in. Patient last stress test was 5 years ago. Denies any cardiac history. admitted with chest pain. Today-nuclear stress test came back positive. No chest pain. Review of systems: Was done for constitutional, cardiovascular, GI, pulmonary. relevant finding as above Active Medications Alprazolam (Alprazolam 0.25 Mg Tab) 0.25 mg PO Q6HR PRN PRN Reason: Mild Anxiety Alprazolam (Alprazolam 0.5 Mg Tab) 0.5 mg PO Q6HR PRN PRN Reason: Moderate Anxiety Amlodipine Besylate (Amlodipine 5 Mg Tab) 5 mg PO [facility] Last Admin: 02/21/20 21:42 Dose: 5 mg Documented by: Aspirin (Aspirin 325 Mg Tab) 325 mg PO ONCE ONE Stop: 02/22/20 05:01 Aspirin (Aspirin 81 Mg) 81 mg PO DAILY [facility] Atorvastatin Calcium (Atorvastatin 80 Mg Tab) 80 mg PO ONCE ONE Stop: 02/22/20 05:01 Atorvastatin Calcium (Atorvastatin 10 Mg Tab) 10 mg PO [facility] Calcium Carbonate/Glycine (Calcium Carbonate Liquid 500 Mg/5 Ml Cup) 500 mg PO TID-W/MEALS [facility] Last Admin: 02/21/20 17:05 Dose: 500 mg Documented by: Gabapentin (Gabapentin 300 Mg Cap) 300 mg PO BID@1500,1900 [facility] Last Admin: 02/21/20 21:38 Dose: 300 mg Documented by: Insulin Aspart (Insulin Aspart (Novolog) 100 Unit/Ml Vial) 0 unit SQ [facility]; Protocol Last Admin: 02/21/20 21:41 Dose: Not Given Documented by: Insulin Detemir (Insulin Detemir (Levemir) 100 Unit/Ml Syr) 20 unit SQ [facility] Last Admin: 02/21/20 21:41 Dose: 20 unit Documented by: Losartan Potassium (Losartan 50 Mg Tab) 100 mg PO DAILY [facility] Last Admin: 02/21/20 11:01 Dose: 100 mg Documented by: Metformin HCl (Metformin 500 Mg Tab) 500 mg PO BID-W/MEALS [facility] Last Admin: 02/21/20 17:05 Dose: 500 mg Documented by: Multivitamins (Multivitamins, Thera 1 Each Tab) 1 each PO DAILY [facility] Last Admin: 02/21/20 11:01 Dose: 1 each Documented by: Nitroglycerin (Nitroglycerin Sl Tabs 0.4 Mg Tab) 0.4 mg SUBLINGUAL Q5M PRN PRN Reason: Chest Pain Nitroglycerin (Nitroglycerin Oint 1 Inch/Gm Packet) 1 inch TOPICAL Q6HR [facility] Last Admin: 02/21/20 17:03 Dose: Not Given Documented by: Pantoprazole Sodium (Pantoprazole 40 Mg Tablet) 40 mg PO AC-BID [facility] Last Admin: 02/21/20 17:05 Dose: 40 mg Documented by: Sodium Chloride (Sodium Chloride 0.9% Flush 10 Ml Syringe) 10 ml IV BID [facility] Last Admin: 02/21/20 21:42 Dose: 10 ml Documented by: Tamsulosin HCl (Tamsulosin 0.4 Mg Cap.Er.24h) 0.4 mg PO [facility] Last Admin: 02/21/20 21:50 Dose: 0.4 mg Documented by: Physical examination: VITAL SIGNS: 98.2, 79, 16, 156.77, 98% room air GENERAL: sitting up, comfortable EYES: Pupils equal. Conjunctiva normal. HEENT: External appearance of nose and ears normal, oral cavity grossly normal. NECK: JVD not raised; masses not palpable. HEART: First and second heart sounds are normal; no edema. LUNGS: Respiratory rate normal; clear to auscultation. ABDOMEN: Soft, nontender, liver spleen not palpable, no masses palpable. PSYCH: Alert and oriented x3; mood and affect normal. INVESTIGATIONS, reviewed in the clinical context: White count 5 hemoglobin 14.3 platelets 153 potassium 3.8 creatinine 0.8 Troponin I 3 negative EKG tracing personally reviewed by me-normal sinus rhythm, first-degree AV block Chest x-ray film personally reviewed by me-no obvious infiltrates Lexiscan stress test-positive for ischemia 2-D echocardiogram-EF 55-60%. Moderate concentric LVH Assessment: -This patient had a heavy serving of chili the night before his presentation. Had a very disturbed sleep. Perspiration cold significant nausea a lot of gas. - severe dyspepsia. Patient does occasionally get GERD symptoms. -[place] scan stress test-positive. Pending cardiac catheterization -Essential hypertension -Hypertensive heart disease -BPH -Obesity BMI 34.1 Plan: discussed with patient. Continue current medication treatment plan. Pending cardiac catheterization.
[2020-02-22] MEDS: NITROGLYCERIN OINT 1 INCH/GM PACKET TOPICAL SCH ×3 (00:23→13:37)
[2020-02-22] MEDS ORDERED: ASPIRIN 325 MG TAB PO ONE (05:00)
[2020-02-22] MEDS ORDERED: ATORVASTATIN 80 MG TAB PO ONE (05:00)
[2020-02-22 06:38] LABS: Glucose,Whole Blood 132 mg/dL (75-99)
[2020-02-22] MEDS: INSULIN ASPART (NovoLOG) 100 UNIT/ML VIAL SQ SCH ×3 (06:39→16:55)
[2020-02-22] MEDS: metFORMIN 500 MG TAB PO SCH (06:39)
[2020-02-22] MEDS: LOSARTAN 50 MG TAB PO SCH (06:45)
[2020-02-22] MEDS: MULTIVITAMINS, THERA 1 EACH TAB PO SCH (06:45)
[2020-02-22] MEDS: PANTOPRAZOLE 40 MG TABLET PO SCH ×2 (06:45→16:58)
[2020-02-22] MEDS: CALCIUM CARBONATE LIQUID 500 MG/5 ML CUP PO SCH ×3 (06:46→16:59)
[2020-02-22 12:05] LABS: Glucose,Whole Blood 123 mg/dL (75-99)
[2020-02-22] MEDS ORDERED: IV FLUID CONTINUATION 900 ML IV ONE (12:17)
[2020-02-22] MEDS ORDERED: MIDAZOLAM 2 MG/2 ML VIAL IVP ONE (12:46)
[2020-02-22] MEDS ORDERED: LIDOCAINE 1% INJ 10MG/ML (20 ML MDV) SQ ONE (12:46)
[2020-02-22] MEDS ORDERED: VERAPAMIL SYRINGE (5 MG/10 ML) INTRAARTER ONE ×2 (12:49→12:52)
[2020-02-22] MEDS ORDERED: HEPARIN SODIUM 1,000 UN/ML (10ML VL) IV ONE (12:51)
[2020-02-22] MEDS ORDERED: IOPAMIDOL-370 125ML BTL INJ ONE (12:54)
[2020-02-22] MEDS ORDERED: NON FORMULARY DRUG (Omeprazole 40 MG Capsule.Dr) PO PRN (12:59)
[2020-02-22] MEDS ORDERED: SODIUM CHLORIDE 0.9% 1,000 ML IV SCH ×2 (13:00→14:45)
[2020-02-22] MEDS ORDERED: RX INFO: IV CONTRAST WAS GIVEN 1 EACH MISC MISCELLANE PRN (13:00)
--- NOTE | 2020-02-22 15:33 | CC ---
CARDIAC CATHETERIZATION REPORT DATE OF SERVICE: 02/22/2020 PERFORMING PHYSICIAN: Jono Oh M.D. PROCEDURE PERFORMED: Selective right and left coronary angiogram. INDICATION: This is a 74-year-old gentleman who presented with chest discomfort and underwent myocardial perfusion imaging stress test and that revealed lateral ischemia. Because of that, heart catheterization was advised. APPROACH: Right radial artery. COMPLICATIONS: None. LEVEL OF SEDATION: Moderate, with sedation length of 10 minutes. PROCEDURE DESCRIPTION: After obtaining informed consent, the patient was brought to the cardiac record label intern. The right radial artery was cannulated using micropuncture technique. The micropuncture wire passed easily. Then I placed a 6-Kittitian sheath at the right radial artery. I gave the patient 2 mg of verapamil IA and 10,000 units of heparin IV. I did after that selective right and left coronary angiogram with JR4 and JL3.5 catheters. The procedure was completed without any complications. SELECTIVE CORONARY ANGIOGRAM: 1. The right coronary artery is a large-caliber vessel. It is a dominant vessel and appeared to be angiographically normal. It distally bifurcates into PDA and PLV branches. Both appeared to be angiographically normal. 2. The left main is angiographically normal. It bifurcates into LCX and LAD and ramus intermedius. 3. The LCX is a moderate-caliber vessel and nondominant vessel and it appeared to be angiographically normal. It gives rise in the proximal portion to a first OM, which seems to be normal. 4. The ramus intermedius is a moderate-caliber vessel and seems to be angiographically normal. 5. The LAD. The proximal LAD has a plaque that appeared to be in the range of 40% to 50%. The mid LAD appeared to have mild disease only and the LAD distally appeared to be angiographically normal. CONCLUSION: Intermediate nonobstructive disease involving the LAD on long segment. POST-PROCEDURE MANAGEMENT: 1. Medical treatment. 2. Follow up with the patient. MMODL / IJN: [id number] /
[2020-02-22] MEDS: GABAPENTIN 300 MG CAP PO SCH (15:35)
[2020-02-22 16:51] VITALS: BP 168/83; PULSE 76; RESP 16; TEMP 98.1
[2020-02-22 16:54] LABS: Glucose,Whole Blood 219 mg/dL (75-99)
[2020-02-22 21:45] LABS: Hemoglobin A1C 9.6 % (4.0-6.0)
--- NOTE | 2020-02-22 22:58 | P.DS ---
Providers Date of admission: 02/22/20 08:12 Expected date of discharge: 02/22/20 Attending physician: Ángel Clarke Consults: 02/20/20 08:47 Consult Physician Urgent Consulting Provider: Alec Robles Consult Reason/Comments: cp Do you want consulting provider notified?: Yes Primary care physician: [facility][1] Course: Chief Complaint: That chest discomfort History of presenting complaint: This is a pleasant [address] Oakley. Chronic stable medical conditions include diabetes, hypertension, stroke in 2015 that has left him with right hand fingers being numb, BPH peptic ulcer disease. Patient last night had a good helping of chili dinner. He really could not sleep. Zocor perspiration. Had a lot of nausea gas. To go blood pressure this morning does 109 x 1 09. Also had some chest discomfort not for too long to. No radiation. No dizziness nor lightheadedness. Did break out in a sweat. Decided to come in. Patient last stress test was 5 years ago. Denies any cardiac history. admitted with chest pain. nuclear stress test came back positive. patient underwent cardiac catheterization.found to have intermediate nonobstructive disease involving the LAD and a long segment. about 40-50%.no chest pain. Consultation: Cardiology associates Physical examination: VITAL SIGNS: 98.1, 76, 16, 1 35 x 72, 97% room air GENERAL: laying in bed, comfortable EYES: Pupils equal. Conjunctiva normal. HEENT: External appearance of nose and ears normal, oral cavity grossly normal. NECK: JVD not raised; masses not palpable. HEART: First and second heart sounds are normal; no edema. LUNGS: Respiratory rate normal; clear to auscultation. ABDOMEN: Soft, nontender, liver spleen not palpable, no masses palpable. PSYCH: Alert and oriented x3; mood and affect normal. INVESTIGATIONS, reviewed in the clinical context: White count 5 hemoglobin 14.3 platelets 153 potassium 3.8 creatinine 0.8 Troponin I 3 negative EKG tracing personally reviewed by me-normal sinus rhythm, first-degree AV block Chest x-ray film personally reviewed by me-no obvious infiltrates Lexiscan stress test-positive for ischemia 2-D echocardiogram-EF 55-60%. Moderate concentric LVH Assessment: -- severe dyspepsia. 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 the range of 40-50% lesion -Essential hypertension -Hypertensive heart disease -BPH -Obesity BMI 34.1 disposition: Home Patient Condition at Discharge: Stable Plan - Discharge Summary New Discharge Prescriptions: New Aspirin 81 mg PO DAILY chew Continue Tamsulosin [Flomax] 0.4 mg PO HS Losartan [Cozaar] 50 mg PO BID Atorvastatin Calcium [Lipitor] 10 mg PO HS amLODIPine [Norvasc] 5 mg PO HS Multivitamins, Thera [Multivitamin (formulary)] 1 tab PO DAILY Cholecalciferol [Vitamin D3 (25 Mcg = 1000 Iu)] 2,000 unit PO DAILY metFORMIN HCL [metFORMIN HCL ER] 500 mg PO BID Pantoprazole Sodium [Protonix] 40 mg PO BID Insulin Detemir [Levemir Flextouch] 20 units SQ HS Gabapentin [Neurontin] 300 mg PO BID Discontinued Omeprazole [PriLOSEC] 40 mg PO DAILY PRN PRN Reason: Heartburn Esomeprazole Magnesium [NexIUM] 20 mg PO DAILY PRN PRN Reason: Heartburn Discharge Medication List Atorvastatin Calcium [Lipitor] 10 mg PO HS 05/23/17 [History] Losartan [Cozaar] 50 mg PO BID 05/23/17 [History] Tamsulosin [Flomax] 0.4 mg PO HS 05/23/17 [History] amLODIPine [Norvasc] 5 mg PO HS 10/29/17 [History] Cholecalciferol [Vitamin D3 (25 Mcg = 1000 Iu)] 2,000 unit PO DAILY 02/20/20 [History] Gabapentin [Neurontin] 300 mg PO BID 02/20/20 [History] Insulin Detemir [Levemir Flextouch] 20 units SQ HS 02/20/20 [History] Multivitamins, Thera [Multivitamin (formulary)] 1 tab PO DAILY 02/20/20 [History] Pantoprazole Sodium [Protonix] 40 mg PO BID 02/20/20 [History] metFORMIN HCL [metFORMIN HCL ER] 500 mg PO BID 02/20/20 [History] Aspirin 81 mg PO DAILY chew 02/22/20 [Rx] Follow up Appointment(s)/Referral(s): Eddie Oakley DO [Primary Care Provider] - 1 Week (Office is currently closed, please call the office Friday am to schedule appointment.) oJno Oh MD [STAFF PHYSICIAN] - 03/03/20 11:30 am (appointment made for 03/03/20 @ 11:30am with Dr Robles ) Patient Instructions/Handouts: *[facility] - After Heart Catheterization - Cruise Consultant Instructions Discharge Disposition: HOME SELF-CARE
[2020-02-23] MEDS ORDERED: CHOLECALCIFEROL 1,000 UNIT TAB PO SCH (09:00)
[2020-02-23] MEDS ORDERED: ASPIRIN 81 MG PO SCH (09:00)
[2020-02-23] MEDS ORDERED: ATORVASTATIN 10 MG TAB PO SCH (21:00)
[2020-02-24] MEDS ORDERED: metFORMIN 500 MG TAB PO SCH (17:30)
--- NOTE | 2020-02-24 20:45 | CDI ---
Documentation Clarification Form Date: 02/25/2020 From: Serafin Merrill Phone: If you have a question about this query, please contact Lena Allen, Cubing Machine Tender at [phone] between 8am and 5pm. Admit Date: 02/22/2020 Discharge Date: 02/22/2020 Patient Name: Curtis Montez Visit Number: [id number] ATTENTION: The Clinical Documentation Specialists (CDI) and [facility] Coding Staff appreciate your assistance in clarifying documentation. Please respond to the clarification below the line at the bottom and electronically sign. The CDI & [facility] Coding staff will review the response and follow-up if needed. Please note: Queries are made part of the Legal Health Record. If you have any questions, please contact the author of this message via ITS. Dear Ángel Johansen MD., The patients principal diagnosis has not been clearly identified and requires clarification. Patient last night had a good helping of chili dinner.He really could not sleep.Zocor perspiration.Had a lot of nausea gas.To go blood pressure this morning does 109 x 1 09. admitted with chest pain. History/Risk factors: CAD, obesity, GERD This patient had a heavy serving of chili the night before his presentation. Had a very disturbed sleep.Perspiration cold significant nausea a lot of gas. Most of his presentation would be explained by severe dyspepsia.Patient does occasionally get GERD symptoms. Admitted with chest pain. nuclear stress test came back positive. patient underwent cardiac catheterization.found to have intermediate nonobstructive disease involving the LAD and a long segment. about 40-50%.no chest pain. nonobstructive coronary artery disease per cardiac catheterization the range of 40-50% lesion In your professional opinion, can you please clarify which diagnosis, after study, accounted for the patients presenting symptoms and was the reason chiefly responsible for the admission? Chest pain related to Coronary artery disease Chest pain related to GERD Symptoms Chest pain related to GERD symptoms MTDD
== END 2020-02-22 18:14 | disposition home or self-care (01) | DRG 392 ==
LOC: EC 07:01 → 1SOBS 08:47 → OBSVTOIN 02-22 08:12
PROVIDERS: ADMIT Hospitalist; ATTEND Hospitalist
PROC: 4A023N7 Measurement of Cardiac Sampling and Pressure, Left Heart, Percutaneous Approach (ICD-10-PCS; principal; 2020-02-22 12:00)
PROC: B2111ZZ Fluoroscopy of Multiple Coronary Arteries using Low Osmolar Contrast (ICD-10-PCS; principal; 2020-02-22 12:00)
DX: K21.9 Gastro-esophageal reflux disease without esophagitis (principal); I25.10 Atherosclerotic heart disease of native coronary artery without angina pectoris; N40.0 Benign prostatic hyperplasia without lower urinary tract symptoms; Z96.643 Presence of artificial hip joint, bilateral; Z96.1 Presence of intraocular lens; E66.9 Obesity, unspecified; E78.5 Hyperlipidemia, unspecified; E11.9 Type 2 diabetes mellitus without complications; I11.9 Hypertensive heart disease without heart failure; I15.8 Other secondary hypertension; I44.0 Atrioventricular block, first degree; Z79.4 Long term (current) use of insulin; Z79.899 Other long term (current) drug therapy; Z88.4 Allergy status to anesthetic agent; Z88.1 Allergy status to other antibiotic agents; Z86.73 Personal history of transient ischemic attack (TIA), and cerebral infarction without residual deficits; Z82.3 Family history of stroke; Z87.11 Personal history of peptic ulcer disease; Z90.49 Acquired absence of other specified parts of digestive tract; Z98.42 Cataract extraction status, left eye; Z98.41 Cataract extraction status, right eye; Z68.34 Body mass index [BMI] 34.0-34.9, adult; Z98.890 Other specified postprocedural states; Z82.49 Family history of ischemic heart disease and other diseases of the circulatory system
CPT/HCPCS: 36415; 71046; 78452; 80053; 80061; 83036; 83735; 84484; 85025; 85610; 85730; 93005; 93017; 93306; 93454; 96372; 96374; 99285

== ENCOUNTER 2020-09-28 09:55 | Day surgery (SDC) | payer MEDICARE ==
[2020-09-28] MEDS ORDERED: LACTATED RINGERS 1,000 ML IV ONE (10:45)
[2020-09-28] MEDS ORDERED: LIDOCAINE 1% (10MG/ML) FOR IV START INTRADERMA ONE (10:45)
[2020-09-28 10:56] LABS: Glucose,Whole Blood 117 mg/dL (75-99)
[2020-09-28 11:20] VITALS: TEMP 97
[2020-09-28] MEDS ORDERED: PROPOFOL 10 MG/ML 20 ML VIAL IV ONE (11:20)
--- NOTE | 2020-09-28 12:04 | P.PCN ---
Date of Procedure: 09/28/20 Description of Procedure: BRIEF HISTORY: Patient is a 75-year-old male presenting for outpatient colonoscopy for evaluation of personal history of colon polyps and inadequate prep on prior colonoscopy. Last colonoscopy 2018 with polypectomy and inadequate prep. No change in bowel habits or blood per rectum. PROCEDURE PERFORMED: Colonoscopy with polypectomy. PREOPERATIVE DIAGNOSIS: Personal history of colon polyps, last colonoscopy 2018. ESTIMATED BLOOD LOSS: Minimal. IV sedation per Anesthesia. PROCEDURE: After informed consent was obtained, the patient, was brought into the endoscopy unit. IV sedation was administered by Anesthesia under continuous monitoring. D igital rectal examination was normal. Initially the Olympus CF-190 flexible video colonoscope was then inserted in the rectum, gradually advanced into the cecum without any difficulty. Careful examination was performed as the scope was gradually being withdrawn. Ileocecal valve and the appendiceal orifice were visualized and appeared normal. Prep was fair prep with liquid and solid stool throughout the colon. Mucosa of the cecum, ascending colon, transverse colon, descending colon, sigmoid colon, and rectum appeared normal, with 3 diminutive polyps measuring 1-2 mm in size removed from the transverse colon, hepatic flexure and splenic flexure. Two flat 3 mm descending colon polyp removed with cold snare polypectomy.. Retroflexion was performed in the rectum and no lesions were seen. The patient tolerated the procedure well. IMPRESSION: 2 flat descending colon polyps removed with cold snare polypectomy. 3 diminutive polyps in the transverse colon, hepatic flexure and splenic flexure removed with cold forcep polypectomy. Fair prep. RECOMMENDATIONS: Findings of this examination were discussed with the patient and his family. Okay to resume diet. Okay to resume medications. Await pathology from polypectomies. Recommend repeat colonoscopy in 3 years for colon polyps and fair prep pending pathology from polypectomies.
[2020-09-28 12:40] VITALS: BP 148/72; PULSE 65; RESP 20
== END 2020-09-28 12:40 | disposition home or self-care (01) ==
LOC: ORWHC2ENDO 09:55
PROVIDERS: ATTEND Internal Medicine
DX: Z12.11 Encounter for screening for malignant neoplasm of colon (principal); D12.3 Benign neoplasm of transverse colon; D12.4 Benign neoplasm of descending colon; K63.5 Polyp of colon; Z86.010 Personal history of colon polyps; I10 Essential (primary) hypertension; E11.9 Type 2 diabetes mellitus without complications; Z96.643 Presence of artificial hip joint, bilateral; Z98.890 Other specified postprocedural states; Z90.49 Acquired absence of other specified parts of digestive tract; Z86.73 Personal history of transient ischemic attack (TIA), and cerebral infarction without residual deficits; Z79.84 Long term (current) use of oral hypoglycemic drugs; Z79.82 Long term (current) use of aspirin; Z79.899 Other long term (current) drug therapy; Z88.4 Allergy status to anesthetic agent; Z88.1 Allergy status to other antibiotic agents
CPT/HCPCS: 88305; 45380; 45385; J2704

== ENCOUNTER → 2023-11-18 | Outpatient (CLI) | payer MEDICARE ==
--- NOTE | 2023-12-09 11:20 | MR ---
Patient: Curtis Montez H Ordering Physician: Unknown, Unknown ID: [id number] Phone, Pager: Phon e: N/A Pager: N/A : [phone] Age/Gender: 78Y, M Primary Location: N/A Procedure: MR pancreas wo/w con Study Date: 11/18/2023 1:44:33 PM EXAMINATION TYPE: MR pancreas wo/w con DATE OF EXAM: 11/19/2023 7:37 AM CLINICAL INDICATION: Abnormal labs COMPARISON: MRI abdomen 01/11/2020 TECHNIQUE: Multiplanar multi-sequence imaging was performed without contrast. Post contrast imaging was performed. Post IV contrast subtraction images were also submitted for review. IV Contrast: 11 cc Gadavist. FINDINGS: LOWER CHEST: No gross irregularity. ABDOMEN Liver: No evidence for hepatic steatosis or cirrhosis. Gallbladder and Bile ducts: No evidence for ductal dilation, or biliary stricture or evidence of chol edocholithiasis. Gallbladder is surgically absent. Pancreas: Scattered cystic lesions are seen throughout the pancreatic parenchyma including the pancre atic tail measuring up to 19 mm and at least 4 hepatic body/neck. More also seen in the pancreatic un cinate process/head. No ductal dilation. No evidence for solid mass. Spleen: Enlarged for size measuring up to 15.8 cm. This simple appearing splenic cyst measuring 8 mm is stable. Adrenal glands: Unremarkable. Kidneys: High T2 signal cysts throughout the kidneys some with thin septation versus adjacent cysts o n the right. No evidence for obstructive uropathy. No suspicious renal masses. Stomach and Bowel: No evidence for bowel wall thickening or evidence for obstruction. Retroperitoneum/Peritoneum: No evidence of pneumoperitoneum or free fluid. Vasculature: No aortic aneurysm. Musculoskeletal: The osseous structures appear intact. Fixation hardware in the lower lumbar spine wi th susceptibility artifact.r Lymph Nodes: No gross evidence for lymphadenopathy. Abdominal wall: Unremarkable. IMPRESSION: 1. Pancreatic cystic lesions possibly representing sequela of prior pancreatitis versus side branch intraductal mucinous neoplasm versus other cystic neoplasms. Findings not significantly changed from 2019. No suspicious pancreatic masses. 2. 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 3. Splenomegaly. 4. Simple appearing splenic cyst.
== END | disposition home or self-care (01) ==
LOC: RADMRIMAIN 14:45
PROVIDERS: ATTEND Internal Medicine
DX: K86.9 Disease of pancreas, unspecified (principal); K86.2 Cyst of pancreas; N28.1 Cyst of kidney, acquired; R16.1 Splenomegaly, not elsewhere classified; D73.4 Cyst of spleen
CPT/HCPCS: 74183; A9585

== ENCOUNTER 2023-11-28 09:38 | Day surgery (SDC) | payer MEDICARE ==
[2023-11-25 14:52] VITALS: BMI 35.2
[2023-11-28 10:06] VITALS: RESP 16; TEMP 97
[2023-11-28] MEDS: IV FLUID CONTINUATION 1,000 ML IV ONE (10:18)
[2023-11-28 10:22] LABS: Glucose,Whole Blood 112 mg/dL (70-110)
[2023-11-28] MEDS: LACTATED RINGERS 1,000 ML IV SCH (10:22)
[2023-11-28] MEDS ORDERED: PROPOFOL 10 MG/ML 20 ML VIAL IV ONE (10:42)
--- NOTE | 2023-11-28 11:10 | P.PCN ---
Date of Procedure: 11/28/23 Procedure(s) Performed: BRIEF HISTORY: Patient is a 78-year-old pleasant white male scheduled for an elective colonoscopy as a part of evaluation by history of colon polyps. Last colonoscopy was 5 years ago. PROCEDURE PERFORMED: Colonoscopy with biopsy and cold snare polypectomy. PREOPERATIVE DIAGNOSIS: History of colon polyps. IV sedation per Anesthesia. PROCEDURE: After informed consent was obtained, the patient, was brought into the endoscopy unit. IV sedation was administered by Anesthesia under continuous monitoring. Digital rectal examination was normal. Initially the Olympus CF-160 flexible video colonoscope was then inserted in the rectum, gradually advanced into the cecum without any difficulty. Careful examination was performed as the scope was gradually being withdrawn. Ileocecal valve and the appendiceal orifice were visualized and appeared normal. Prep was excellent. Mucosa of the cecum, ascending colon, appeared normal. The hepatic flexure there was a 3 mm polyp that was removed by cold biopsy. In the transverse colon there was a 3 mm polyp that was removed by cold biopsy and a 7 mm polyp that was removed by cold snare polypectomy. Rest of the transverse colon, descending colon, sigmoid colon, and rectum appeared normal. Retroflexion was performed in the rectum and no lesions were seen. The patient tolerated the procedure well. IMPRESSION: 3 mm hepatic flexure polyp status post cold biopsy 3 mm transverse colon polyp status post cold biopsy 7 mm transverse colon polyp status post cold snare polypectomy RECOMMENDATIONS: Findings of this examination were discussed with the patient as well as his family. He was advised to follow-up with the biopsy results. If the biopsy reveals adenoma he can have repeat colonoscopy in 3 years..
[2023-11-28 11:28] VITALS: BP 109/69; PULSE 67
== END 2023-11-28 11:45 | disposition home or self-care (01) ==
LOC: ORWHC2ENDO 09:38
PROVIDERS: ATTEND Internal Medicine Gastroenterology
DX: Z12.11 Encounter for screening for malignant neoplasm of colon (principal); D12.3 Benign neoplasm of transverse colon; I10 Essential (primary) hypertension; E78.5 Hyperlipidemia, unspecified; E11.9 Type 2 diabetes mellitus without complications; K21.9 Gastro-esophageal reflux disease without esophagitis; I67.9 Cerebrovascular disease, unspecified; M54.50 Low back pain, unspecified; Z88.1 Allergy status to other antibiotic agents; Z86.010 Personal history of colon polyps; Z88.6 Allergy status to analgesic agent; Z79.899 Other long term (current) drug therapy; Z79.84 Long term (current) use of oral hypoglycemic drugs; Z79.4 Long term (current) use of insulin
CPT/HCPCS: 45380; 45385; 88305